=== PATIENT | female | born 1945 | race Caucasian/White ===

== ENCOUNTER 2017-01-02 10:45 | Inpatient (IN) | payer MEDICARE ==
[~2017-01-02] VITALS: Ht 154.9 cm; Wt 137.3 kg
[~2017-01-02 10:45] MED LIST: ALBU17IN INH; ALBU83IN INH; ASPI1TAB PO; ATEN25TA PO; BACITAB PO; CALC600T60 PO; EPIN0.3I6 IM; FISH1000 PO; FURO80TA2 PO; OMEP20CA3 PO; POTA10CA PO; VITA10002 PO; WARF-18 PO; WARF-23 PO
[2017-01-02] MEDS ORDERED: BISACODYL 10 MG SUPP PR PRN (12:15)
[2017-01-02] MEDS ORDERED: NAPROXEN 250 MG TAB PO PRN (12:15)
[2017-01-02 12:35] VITALS: BP 132/63
[2017-01-02] MEDS ORDERED: CALC950T PO (13:35)
[2017-01-02] MEDS ORDERED: REFR0.1D OU (13:35)
[2017-01-02] MEDS ORDERED: COLA100C5 PO (13:35)
[2017-01-02] MEDS ORDERED: ASCO500T PO (13:35)
[2017-01-02] MEDS ORDERED: BISA10SU4 PR (13:35)
[2017-01-02] MEDS ORDERED: TYLE325T5 PO (13:35)
[2017-01-02] MEDS ORDERED: NAPR500T3 PO (13:43)
[2017-01-02] MEDS ORDERED: GABA-279 PO (13:43)
[2017-01-02] MEDS ORDERED: MILKSUS5 PO (13:43)
[2017-01-02] MEDS ORDERED: LIDO1PAD TOP (13:43)
[2017-01-02] MEDS ORDERED: VITA100066 PO (13:49)
[2017-01-02] MEDS ORDERED: SENN1TAB10 PO (13:49)
[2017-01-02] MEDS ORDERED: OXYC-517 PO (13:49)
[2017-01-02 14:00] VITALS: BP 119/63
--- NOTE | 2017-01-02 14:39 | CR.PDOC ---
[facility] [place] CONSULTATION REPORT FOR: Dr English REASON FOR CONSULTATION: Medical Management DATE OF VISIT: 01/02/17 ATTENDING: Dr. Jaspreet Salmeron PCP: HPI: 71year oldF who presented to 12/27/16 following a fall from a tree stand (Pt states the tree stand broke) at 10 ft, denies LOC. Pt was treated for pelvic fracture, non displaced L3 vertebral body fracture extending to rt pedicle. displaced Rt L1-4 fracture. Orthopedics at recommended no surgical intervention re pelvic fracture. Neurosurgery recommended no surgical intervention re vertebral body fracture. Pt transferred to the care of JOSEPHINE Paez. Denies any fevers, chills, weakness, fatigue, Headache, Chest Pain, Shortness of breath, cough, palpitations, abdominal pain, N/V/D or changes in bowel or bladder habits. PAST MEDICAL HISTORY: 1. Hepatitis B. 2. Gastroesophageal reflux disease. 3. Anemia. 4. Hypertension. 5. Transient ischemic attack (TIA). 6. Atrial fibrillation. On coumadin. 7. TRIXIE. CPAP. PAST SURGICAL HISTORY: 1. Tonsillectomy. 2. Tubal ligation. 3. Hysterectomy. 4. Cholecystectomy SOCHX: Resides in: [facility] Marital Status: Tobacco use: denies ETOH: denies Illicit Drugs: Denies FAMHX: non contributory ROS: As noted in HPI, otherwise 11pt ROS of systems reviewed and unremarkable. PE: GEN: 71yoF, appears stated age. Well-nourished, well developed. No acute distress. Alert and oriented x 3. Pleasant, interactive. HEENT: Normocephalic, atraumatic. Pupils are equal, round, and reactive to light. Extraocular movements are intact. No nystagmus appreciated. Sclera are nonicteric. Conjunctiva without injection. Nose midline. Nasal turbinates without bogginess. No facial asymmetry. Moist mucous membranes. Dentition fair. Pharynx pink and moist, no cobblestoning. Neck supple, trachea midline. No lymphadenopathy or thyromegaly appreciated. CHEST: Regular rate and rhythm, +S1, +S2 LUNGS: Clear to auscultation bilaterally. No wheezes, rales, or rhonchi. Breathing appears symmetric and easy. Patient is speaking in full sentences. No accessory muscle use. ABD: Round, soft, non-tender, non-distended. +Bowel sounds throughout. No rebound or guarding. No costovertebral angle tenderness. EXT: No lower extremity edema appreciated. SKIN: [place], dry, warm. No rashes. NEURO: Alert and oriented x 3. Cranial nerves III-XII are intact. No focal deficits appreciated. Adm labs CBC/CMP/UA/INR are pending at this time. A&P: 71year oldF who presented to 12/27/16 following a fall from a tree stand (Pt states the tree stand broke) at 10 ft, denies LOC. Pt was treated for pelvic fracture, non displaced L3 vertebral body fracture extending to rt pedicle. displaced Rt L1-4 fracture. Orthopedics at recommended no surgical intervention re pelvic fracture. Neurosurgery recommended no surgical intervention re vertebral body fracture. 1. Multitrauma/pelvic fracture/vertebral fracture. F/U with Orthopedics and Neurosurgery as per . Mgmt as per [facility]/Dr nEglish. Pain control as per Dr English/[facility] Bowel care as per [facility]/Dr English. DVT prophylaxis. 2. Chronic AFib. atenolol rate control with hold parameters. Continue with Coumadin. PT/INR ordered daily. Labs pending. Monitor. 3. TRIXIE. CPAP with home settings. 4. HTN. Lasix 40 mg po daily/KCL. 5. GERD. Continue PPI. 6. H/O TIA. Continue ASA 81mg daily. Thank you for your consultation. We will continue to follow along with you. Vital Signs/I&O VS pending. Laboratory Data Labs 24H labs pending. Allergies Coded Allergies: Clarithromycin (Verified Allergy, Unknown, 06/10/12) Codeine (Verified Allergy, Unknown, 06/10/12) Fluorescein (Unverified Allergy, Unknown, ANAPHYLACTIC SHOCK, 06/11/15) Morphine (Verified Allergy, Unknown, 06/10/12) Home Medications Scheduled (Lidocaine) 5 % Pad, 3 PATCH TOP DAILY, (Reported) APPLY TO RIGHT HIP Acetaminophen (Tylenol) 325 Mg Tab, 650 MG PO Q6H, (Reported) Ascorbic Acid (Ascorbic Acid) 500 Mg Tab, 500 MG PO DAILY, (Reported) Aspirin (Aspirin 81) 81 Mg Tab, 81 MG PO DAILY, (Reported) Atenolol (Atenolol) 25 Mg Tab, 25 MG PO DAILY, (Reported) Calcium Citrate (Calcium Citrate) 950 Mg Tab, 475 MG PO BID, (Reported) Cholecalciferol (Vitamin D) 1,000 Unit Tab, 2,000 UNIT PO DAILY, (Reported) Docusate Sodium (Colace) 100 Mg Cap, 100 MG PO BID, (Reported) Furosemide (Furosemide) 80 Mg Tab, 80 MG PO DAILY, (Reported) Gabapentin (Gabapentin) 100 Mg Cap, 200 MG PO TID, (Reported) Magnesium Hydroxide (Milk of Magnesia 400 mg/5Ml) 1 Sherry Sherry, 45 ML PO QHS, ( Reported) Naproxen (Naproxen) 500 Mg Tab, 500 MG PO BID, (Reported) Omeprazole (Omeprazole) 20 Mg Cap, 20 MG PO DAILY, (Reported) HAD PROTONIX 40MG @ [facility] Potassium Chloride (Klor-Con M10) 10 Meq Tabcr, 10 MEQ PO BID, (Reported) Senna (Senna Lax) 8.6 Mg Tab, 2 TAB PO QHS, (Reported) Warfarin Sod (Warfarin Sodium) 5 Mg Tab, 5 MG PO 3XW, (Reported) MON, THU, FRI Warfarin Sod (Warfarin Sodium) 2.5 Mg Tab, 2.5 MG PO 4XWK, (Reported) SUN, TUES, THURS, SAT Scheduled PRN Bisacodyl (Bisacodyl) 10 Mg Sup, 10 MG VT Q3DP PRN for CONSTIPATION, (Reported) Carboxymethylcellulose Sodium (Refresh Plus) 0.5 % [place], 1 DROP OU BID PRN for DRY EYES, (Reported) Oxycodone HCl (Oxycodone HCl) 5 Mg Tab, 5 MG PO Q4H PRN for PAIN, (Reported) Oxycodone HCl (Oxycodone HCl) 5 Mg Tab, 10 MG PO Q4H PRN for PAIN, (Reported) Ellie Jacobsen Jan 02, 2017 14:39
[2017-01-02] MEDS: WARFARIN SOD 5 MG TAB PO SCH (16:08)
[2017-01-02] MEDS: GABAPENTIN 100 MG CAP PO SCH ×2 (16:08→21:39)
[2017-01-02] MEDS ORDERED: WARFARIN SOD 5 MG TAB PO SCH (17:00)
[2017-01-02] MEDS: oxyCODONE 5MG TAB PO PRN (18:49)
[2017-01-02 21:30] VITALS: BP 134/66
[2017-01-02] MEDS: CALCIUM/VITAMIN D 500 MG TAB PO SCH (21:38)
[2017-01-02] MEDS: SENNA 8.6 MG TAB (SENOKOT) PO SCH (21:39)
[2017-01-02] MEDS: DOCUSATE SODIUM 100 MG CAP PO SCH (21:39)
[2017-01-02] MEDS: ACETAMINOPHEN TAB 650MG DOSE (2X325MG) PO PRN (21:39)
[2017-01-03] MEDS: oxyCODONE 5MG TAB PO PRN ×4 (03:07→21:01)
[2017-01-03] MEDS: GABAPENTIN 100 MG CAP PO SCH ×3 (06:41→20:59)
[2017-01-03 06:42] VITALS: BP 135/66
[2017-01-03 06:46] LABS: BASO % 0.3 % (0.0-1.0); EOS # 0.5 10^3/uL (0.0-0.50); EOS % 5.7 % (0.0-3.0); IMMATURE GRANULOCYTE % 1.8 % (0-0); LYMPH # 1.7 10^3/uL (1.5-4.5); LYMPH % 21.5 % (24.0-44.0); MEAN CORPUSCULAR HEMOGLOBIN 31.8 pg (27.0-33.0); MEAN CORPUSCULAR HGB CONC 33.3 g/dl (32.0-36.5); MEAN CORPUSCULAR VOLUME 95.4 fl (80.0-96.0); MONO # 0.7 10^3/uL (0.0-0.8); MONO % 9.2 % (0.0-5.0); NEUTROPHILS # 4.9 10^3/uL (1.8-7.7); NEUTROPHILS % 61.5 % (36.0-66.0); PLATELET COUNT, AUTOMATED 208 10^3/uL (150-450); RED CELL DISTRIBUTION WIDTH 14.3 % (11.5-14.5); WHITE BLOOD COUNT 7.9 10^3/uL (4.0-10.0)
[2017-01-03 06:59] LABS: INR 2.51
[2017-01-03 07:07] LABS: ALBUMIN 2.3 GM/DL (3.2-5.2); ALBUMIN/GLOBULIN RATIO 0.61 (1.00-1.93); ALKALINE PHOSPHATASE 84 U/L (45-117); ALT/SGPT 22 U/L (12-78); ANION GAP 6 MEQ/L (8-16); AST/SGOT 15 U/L (7-37); BILIRUBIN,TOTAL 1.4 MG/DL (0.2-1.0); BLOOD UREA NITROGEN 29 MG/DL (7-18); CALCIUM LEVEL 8.6 MG/DL (8.8-10.2); CARBON DIOXIDE LEVEL 30 MEQ/L (21-32); CHLORIDE LEVEL 102 MEQ/L (98-107); CREATININE FOR GFR 0.87 MG/DL (0.55-1.02); GLOMERULAR FILTRATION RATE > 60.0 (>39); GLUCOSE, FASTING 99 MG/DL (83-110); POTASSIUM SERUM 4.8 MEQ/L (3.5-5.1); SODIUM LEVEL 138 MEQ/L (136-145); TOTAL PROTEIN 6.1 GM/DL (6.4-8.2)
[2017-01-03] MEDS: POTASSIUM CHLORIDE 10 MEQ SR TABLET PO SCH (08:51)
[2017-01-03] MEDS: OMEPRAZOLE 20 MG CAP PO SCH (08:51)
[2017-01-03] MEDS: FUROSEMIDE 40 MG TAB PO SCH (08:51)
[2017-01-03] MEDS: ASCORBIC ACID 500 MG TAB PO SCH (08:51)
[2017-01-03] MEDS: ASPIRIN 81 MG ENTERIC TAB PO SCH (08:52)
[2017-01-03] MEDS: ATENOLOL 25 MG TAB PO SCH (08:52)
[2017-01-03] MEDS: CALCIUM/VITAMIN D 500 MG TAB PO SCH ×2 (08:52→20:59)
[2017-01-03] MEDS: DOCUSATE SODIUM 100 MG CAP PO SCH ×2 (08:53→20:59)
[2017-01-03] MEDS: ACETAMINOPHEN TAB 650MG DOSE (2X325MG) PO PRN (11:57)
[2017-01-03 14:00] VITALS: BP 113/68
[2017-01-03] MEDS: WARFARIN SOD 2.5 MG TAB PO SCH (17:22)
[2017-01-03 20:00] VITALS: BP 152/84
[2017-01-03] MEDS: SENNA 8.6 MG TAB (SENOKOT) PO SCH (21:00)
[2017-01-04 06:00] VITALS: BP 154/74
[2017-01-04] MEDS: GABAPENTIN 100 MG CAP PO SCH ×3 (06:25→22:51)
[2017-01-04 07:07] LABS: MEAN CORPUSCULAR HEMOGLOBIN 31.1 pg (27.0-33.0); MEAN CORPUSCULAR HGB CONC 32.5 g/dl (32.0-36.5); MEAN CORPUSCULAR VOLUME 95.5 fl (80.0-96.0); PLATELET COUNT, AUTOMATED 247 10^3/uL (150-450); RED CELL DISTRIBUTION WIDTH 14.9 % (11.5-14.5); WHITE BLOOD COUNT 6.9 10^3/uL (4.0-10.0)
[2017-01-04 07:18] LABS: INR 2.48
[2017-01-04] MEDS: ASCORBIC ACID 500 MG TAB PO SCH (08:21)
[2017-01-04] MEDS: DOCUSATE SODIUM 100 MG CAP PO SCH ×2 (08:21→20:26)
[2017-01-04] MEDS: OMEPRAZOLE 20 MG CAP PO SCH (08:21)
[2017-01-04] MEDS: CALCIUM/VITAMIN D 500 MG TAB PO SCH ×2 (08:21→20:27)
[2017-01-04] MEDS: POTASSIUM CHLORIDE 10 MEQ SR TABLET PO SCH (08:21)
[2017-01-04] MEDS: FUROSEMIDE 40 MG TAB PO SCH (08:21)
[2017-01-04] MEDS: ASPIRIN 81 MG ENTERIC TAB PO SCH (08:21)
[2017-01-04] MEDS: oxyCODONE 5MG TAB PO PRN ×3 (08:22→20:28)
[2017-01-04] MEDS: ATENOLOL 25 MG TAB PO SCH (08:22)
[2017-01-04 14:00] VITALS: BP 132/74
[2017-01-04] MEDS: WARFARIN SOD 2.5 MG TAB PO SCH (18:26)
[2017-01-04 20:23] VITALS: BP 122/70
[2017-01-04] MEDS: SENNA 8.6 MG TAB (SENOKOT) PO SCH (20:27)
[2017-01-04] MEDS: ACETAMINOPHEN TAB 650MG DOSE (2X325MG) PO PRN (22:52)
[2017-01-05] MEDS: GABAPENTIN 100 MG CAP PO SCH ×3 (06:52→21:00)
[2017-01-05] MEDS: ACETAMINOPHEN TAB 650MG DOSE (2X325MG) PO PRN (06:52)
[2017-01-05 06:55] VITALS: BP 118/58
[2017-01-05 07:40] LABS: INR 2.6
[2017-01-05] MEDS: FUROSEMIDE 40 MG TAB PO SCH (08:27)
[2017-01-05] MEDS: OMEPRAZOLE 20 MG CAP PO SCH (08:27)
[2017-01-05] MEDS: POTASSIUM CHLORIDE 10 MEQ SR TABLET PO SCH (08:27)
[2017-01-05] MEDS: CALCIUM/VITAMIN D 500 MG TAB PO SCH ×2 (08:27→08:29)
[2017-01-05] MEDS: DOCUSATE SODIUM 100 MG CAP PO SCH ×2 (08:27→20:58)
[2017-01-05] MEDS: MOM 30ML SUSPENSION UDC PO PRN (08:27)
[2017-01-05] MEDS: ATENOLOL 25 MG TAB PO SCH (08:28)
[2017-01-05] MEDS: ASPIRIN 81 MG ENTERIC TAB PO SCH (08:28)
[2017-01-05] MEDS: oxyCODONE 5MG TAB PO PRN ×3 (08:28→16:04)
[2017-01-05] MEDS: ASCORBIC ACID 500 MG TAB PO SCH (08:28)
--- NOTE | 2017-01-05 10:58 | PMRHPE ---
DATE OF ADMISSION: 01/02/2017 REASON FOR ADMISSION: Rehabilitation of multiple trauma including L3 vertebral compression fracture, L1, 2, 3 and 4 transverse process fractures. Right pubic ramus superior and inferior fractures with thigh wounds from punctures secondary to fall caused from the tree stand brace collapsing and fall onto the right buttock, hip with secondary fractures, contusions and ecchymoses internally and externally due to the fractures and ground to skin contact as well, occurring on 2016. HISTORY OF THE PRESENT ILLNESS: Patient is a right-handed 71-year-old white female who was preparing to use the tree stand for deer hunting and was getting out of the stand when she felt part of it give way and she fell from this 10 foot high stand onto part of the bracing that gave way causing several puncture wounds in her right buttocks as well as the above described fractures. 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 Patient is on weightbearing as tolerated, however, is to use thoracolumbosacral orthosis (TLSO) brace whenever out of bed, though she can have off in bed and she can sit up while not flexing the back or rotating it to more easily done with device. Patient has started therapy at [facility] with physical and occupational therapy and was making fairly good progress and felt to be appropriate more intensive acute rehabilitation. She lives in [place]. She was transferred here for acute intensive rehabilitation at [facility] acute rehabilitation unit ([facility]). Patient is on deep venous thrombosis (DVT) prophylaxis with Coumadin. PAST MEDICAL HISTORY: Includes history of hepatitis B, gastroesophageal reflux disease (GERD), anemia, hypertension, transient ischemic attack (TIA), atrial fibrillation, and severe reaction and anaphylaxis during an eye examination to either the fluorescein stain or dilating agent in June of 2015. PAST SURGICAL HISTORY: Includes tonsillectomy, tubal ligation, hysterectomy, and cholecystectomy. FAMILY HISTORY: Is noncontributory. SOCIAL HISTORY: The patient lives with her in [place], has extensive supportive family. She has been very active prior to this, generally going hunting, which she was preparing to do when part of the tree stand collapsed on her. She does not smoke, use tobacco products or drink alcohol or use illicit drugs. She is ALLERGIC to MORPHINE, CODEINE, CLARITHROMYCIN, and FLUORESCEIN DYE, though consideration on dilators for the eye may have been the source of the reaction in the past. MEDICATIONS ON ADMISSION: - Tylenol 650 mg, was every 6 hours, now as needed every 6 hours - ascorbic acid 500 mg daily - aspirin 81 mg daily - atenolol 25 mg daily - Dulcolax suppository 10 mg per rectum as needed, constipation - Os-Walt D 100 mg by mouth twice a day - Colace 100 mg twice a day - Lasix 40 mg every day - gabapentin 200 mg every 8 hours - Milk of Magnesia 30 mL by mouth as needed, constipation on a daily basis as needed - naproxen 500 mg by mouth twice a day for arthritis pain - omeprazole 20 mg daily for GERD protection - oxycodone 5 mg every 4 hours for moderate pain, 10 mg every 4 hours for severe pain on an as needed basis for both of them - potassium chloride 10 mEq daily - Senokot two tablets nightly - Coumadin 5 mg every Thursday, Thursday, Thursday, 2.5 mg every Thursday, Thursday, , Thursday (Patient's INR therapeutic at 2.35 today, target range 2.0 to 3.0 on the INR.) REVIEW OF SYSTEMS: Negative except for those things noted above. PHYSICAL EXAMINATION: General: Patient is a pleasant, elderly white female who is alert and well oriented. She is short, approximately 5 foot 1 inch tall and morbidly obese weighing 96 kg, but is pleasant and cooperative and a good historian. Vital signs: Temperature 97.5, pulse 97, respirations 16, blood pressure 112/ 72. Pain level is 5/10 and patient is at 96% oxygen saturation on room air. HEENT is normocephalic, atraumatic with some graying of hair. Pupils are equal, round, reactive to light and accommodation. Extraocular motions are intact. Nares are patent. Nasal septum straight. Hearing is good. Oropharynx without significant lesions. Tongue is midline and patient able to evenly elevate palate. Neck is supple. No tenderness or increased lymph node. Thyroid is midline, normal texture and size, mobile. No nodules felt. Lungs are clear in all howe to auscultation. Coronary shows regular rate and rhythm with normal S1, S2, without S3, S4, murmurs or rubs, and patient with 2/4 bilateral radial pulses. She does have her TLSO on. When she lays down in bed it tends to slide up towards the throat and onto the abdomen as far as the anterior portions go. Patient appears in general though, to be in mild distress. Abdomen is obese. Bowel sounds are present in all quadrants. The abdomen is nontender. Upper and lower extremity with functional range of motion. Neurologically, patient is alert and oriented times four. Speech is clear, coherent and appropriate. Affect is pleasant and cooperative. Patient a good historian and seems to have intact memory. She does note a moment of not really remembering what happened when she hit the ground, though she fully remembers going to the ground and she rapidly remembers after being on the ground having the pain and what had happened. She does not have the general fuzziness of having had a concussion at that time and has not had noted cognitive neurologic symptoms during her admission at [facility]. Sensorium is intact to light touch and vibration in bilateral upper and lower extremity with normal tone and 2/4 knee jerks and 1/4 biceps, triceps, brachioradialis. ASSESSMENT/PLAN: Diagnoses: 1. Rehabilitation on multiple trauma including pelvic, right ramus inferior and superior element fractures with a stable ring, L3 fracture, reported crack into the sacrum but is stable, compression fracture of L3 and L1, 2, 3 and 4 transverse process fractures, and patient with high-grade stenosis of L5-S1 and anterolisthesis of L4-5, though no apparent radicular findings. Patient apparently limited on her ability to cone picker her leg and ambulate for significant distances precluding her being safely at home. She is not able to fully perform activities of daily living (ADL) to function at home while safely using the TLSO and needs further training on this. I do feel patient is extremely motivated and likely to benefit from participating in 3 hours of therapy a day with physical and occupational therapy and should be able to overcome her deficits to allow safe return to home within a week. 2. Puncture wounds right buttocks. We will go ahead and continue with dry sterile dressings to these and observe them. 3. History of atrial fibrillation. We will be observing for that and patient will be continued on her Coumadin with target range of 2.0 to 3.0 on INRs. This will also provide deep venous thrombosis (DVT) prophylaxis along with using thromboembolic deterrent (FIONA) hose. 4. Gastroesophageal reflux disease. Patient will continue with omeprazole. 5. Pain. Patient will continued with gabapentin 200 mg every 8 hours, along with naproxen sodium and also oxycodone 5-10 mg for moderate to severe pain every 4 hours as needed. POSTADMISSION PHYSICIAN EVALUATION: Patient is consistent with prior evaluation and preadmission screening. She is highly motivated. She does have to work around her morbid obesity as well as maintaining proper positioning to avoid further damage to the L3 compression fracture and to allow best chance for the transverse processes healing. So she will need to learn how to ADLs mobility with the TLSO on and be able to don and doff it appropriately. She needs to be able to do four stairs to get into the house and to maximally return to her own home, 13 stairs at home, though she may be able to work out with her children who have full bathrooms on the first floor and a walk-in walk, which has a walk-in shower, doing some of the caring hygiene there. I feel patient is able to participate in a benefit from 3 hours of physical and occupational therapy per day with a good prognosis for return to home with her . Her estimated length of stay is 7 days. Time spent on chart review, history and physical, and documentation 70 minutes. DEBORAH
--- NOTE | 2017-01-05 12:10 | IPNPDOC ---
PM&R Progress Note Assisted Living Director Progress Note DATE OF SERVICE: 01/05/17 DATE OF ADMISSION: Jan 02, 2017 at 12:35 INPATIENT REHABILITATION ADMISSION DAY: #4 SUBJECTIVE: Patient is a right-handed 71-year-old white female who was preparing to use the tree stand for deer hunting and was getting out of the stand when she felt part of it give way and she fell from this 10 foot high stand onto part of the bracing that gave way causing several puncture wounds in her right buttocks as well as the above described fractures. 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 Patient is on weightbearing as tolerated, however, is to use thoracolumbosacral orthosis (TLSO) brace whenever out of bed. She reports doing well this weekend except for the anemia and transfusion. Currently, pain well controlled and no other complaints. ALLERGIES: See Below MEDICATIONS: Reviewed, see below. OBJECTIVE: VITAL SIGNS: Please see below. PHYSICAL EXAMINATION: GENERAL: Obese, elderly, white female, who is alert and well oriented. She is in very mild musculoskeletal distress wearing a TLSO and sitting up on the edge of the bed with good balance. HEENT: Normal cephalic/atraumatic. CARDIOVASCULAR: Regular rate and rhythm with normal S1 and S2. 2/4 bilateral radial pulses. LUNGS: All howe clear to auscultation. ABDOMEN: Obese/benign with normal bowel sounds in all quadrants. NEUROLOGICAL: Alert and oriented 4. Speech is clear coherent and appropriate. Affect is pleasant and cooperative. Memory is intact. Patient with some guarding around hips and low back and shoulders in movements. However strength is 4-5 out of 5 in bilateral upper and lower extremities. SKIN: Right thigh puncture wounds dressed. LABORATORY DATA: Reviewed. Please see below. MICROBIOLOGY: Please see below. IMAGING: No new images. DVT prophylaxis ordered?: On Coumadin schedule with today's INR 2.60 and target range 2.0-3.0 on INR. FIONA neal. ASSESSMENT AND PLAN: 1. Rehabilitation multiple trauma including L3 compression fracture, L1-4 transverse process fractures, right superior and inferior rami fractures of the pelvis, right pelvic hematoma secondary to fracture and right buttocks puncture wounds: Patient was unable to do full therapies on Thursday due to severe anemia for which she has been transfused. Patient has since been able to participate in 3 hours of therapy per day of physical and occupational therapy. Patient showing improved balance and motor control. Anticipated date of discharge 2. Anemia: Patient received one unit of packed red blood cells on Thursday and yesterday's H&H is 8.2 and 25.2% which remains moderate to severe. Her heart rate and blood pressures have been stable and she is been able participate in therapy since receiving the transfusion. I will go ahead and order CBCs to monitor the anemia and need for another transfusion. 3. Hypoalbuminemia: Patient has been stressed by patient multiple fractures and other injuries and albumin is down to 2.3. We will continue to monitor this and try and work on nutrition. 4. elevated BUN: Patient appears to be mildly dehydrated with a BUN of 29 and creatinine of 0.87. We will continue to monitor this along with need for nutritional support. 5. Total bilirubin: This is mildly elevated at 1.4 and we will continue to monitor this. The remainder of the liver function tests were normal. REHAB. TEAM ROUNDS: Patient is doing excellent in PT and OT at this time with her progress in mobility and ADL's though she is having problems with pain with activity, due to sometimes over doing it. This afternoon in PT, she developed right posterior hip muscular spasms, which had some relief with manual medicine techniques from stretching to mobilization and muscle energy techniques. I will order some Baclofen 5 mg bid and we will continue to use Icing. Please see therapy notes below. Anticipated Discharge Date is 01/08/17. TIME SPENT: Chart Review, examination and documentation require greater than 25 minutes. Patient: Judy Cortez : 1945 Age/Sex: 71/F Unit#: [id number] Room/Bed: M4148/01 User: Nathaly Best [facility] Date: 01/05/17 13:35 Type: OT Progress Time In * 13:07 Time Out * 13:30 OT Treatment Time-Minutes * 23 mins Type of Therapy Provided * Individual Precautions * Fall * Back Other Precautions * brace when OOB Unit * Acute Inpatient Rehab Pain Comment * Pt c/o pain in back, 06/16. Subjective * Pt seated in w/c with granddaughter present. Agreeable to therapy Cognition * Within Normal Limits Bed Mobility Notes * OOB t/o session Dressing-Upper Body * Moderate Assist Dressing-Lower Body * Minimum Assist ADL Training Note * Pt able to doff back brace with no hands on assist. Mod A to don brace. Pt able to bring brace over head to place behind her. Pt requires A to adjust brace for correct fit. Sit-Static * G Sit-Dynamic * G Balance Training Note * Assessed seated in w/c. OT Intervention Note * Pt also completed CRYSTAL UB ther ex to include shoulder flexion, shoulder abduction, shoulder horizontal ab/adduction and bicep curls. All completed with 2# weight x 10 reps to increase UB strength needed to complete ADL's at maximum level of (I). Pt would benefit from continued practice with donning back brace. Pt left seated in w/c with call light in reach. OT Goal Note * Continue with OT plan of care. Discharge Recommendations * Home w/services Safe for discharge at this time * No Patient: RickJudy orr Nemesio : 1945 Age/Sex: 71/F Unit#: [id number] Room/Bed: M4148/01 User: Beata Stafford OT OT Date: 01/05/17 14:14 Type: OT Progress Time In * 09:20 Time Out * 10:35 OT Treatment Time-Minutes * 75 mins Type of Therapy Provided * Individual Precautions * Fall * Back * Other Other Precautions * TLSO on at all times. Unit * Acute Inpatient Rehab Pain Comment * Pt c/o pain in L hip, did not rate numerically. Subjective * Pt sitting in w/c upon OT arrival, requesting visit to bathroom. Cognition * Within Normal Limits Cognition Comments * A&Ox3 Sit to Supine * Moderate Assist Bed Mobility Notes * Mod assist at completion of tx to transfer sit EOB to supine. Pt requires VCs for log rolling technique, as well as assist for BLE into bed. Sit to Stand * Contact Guard Assist Stand to Sit * Contact Guard Assist Bed to Chair * Contact Guard Assist Toilet/Commode * Contact Guard Assist Functional Transfer Notes: * All functional sit<>stand transfers with CGA for safety using RW. Pt ambulated ~15' to bathroom with RW and completed toilet transfer with CGA only. Bathing * Minimum Assist Dressing-Upper Body * Standby Assist Dressing-Lower Body * Standby Assist Grooming * Independent Toileting * Moderate Assist Eating * Independent ADL Training Note * Pt completed clothing management with CGA, though unable to complete hygiene following BM. Pt reports she has a toilet aide from previous injury, at home, and states her daughter will bring it up as soon as shes able. Pt then returned to chair and completed grooming independently while seated at sink. Pt completed bathing from w/c level, pt able to wash chest, BUE, jcarlos, BLE using long handled sponge. Pt unable to reach to wash buttocks or abdomen due to TLSO donned in sitting. LB dressing-pt able to thread BLE into pants and stand to pull up with supervision only. Pt then returned to supine and completed UB dressing with set-up assist only while supine. Pt does require total assist to doff/don TLSO. A. Eating (include only those with PO intake): * 06.Independent Eating Comments: * See ADL note. B. Oral Hygiene (includes gums in edentulous pts): * 06.Independent Oral Hygiene Comments: * See ADL note. C. Toileting Hygiene (not transfers): * 03.Partial/Mod Assist Toileting Hygiene Comments: * See ADL note E. Shower/Bathe Self (not transfers, can be sponge bath): * 04.Sup/Touch Assist Shower/Bathe Self Comments: * See ADL note F. Upper Body Dressing (includes bra, not hospital gown): * 06.Independent Upper Body Dressing Comments: * See ADL note. G. Lower Body Dressing (includes briefs and knee braces): * 06.Independent Lower Body Dressing Comments: * See ADL note. H. Putting on/taking off footwear (includes TEDS and AFO): * 06.Independent Putting on/taking off footwear Comments: * See ADL note. Sit-Static * G Sit-Dynamic * G Stand-Static * G- Stand-Dynamic * F+ Balance Training Note * Assessed seated in w/c, standing using RW OT Intervention Note * See ADL note above. Following ADLs, pt remained supine in bed, awaiting PT. TLSO adjusted for comfort/stability once donned with PT. All needs met, call light in reach. OT Goal Note * Continue with OT plan of care. Discharge Recommendations * Home w/services Safe for discharge at this time * No Patient: Judy Cortez : 1945 Age/Sex: 71/F Unit#: [id number] Room/Bed: [place] [address] User: Saundra Kurtz PT PT Date: 01/05/17 12:15 Type: PT Progress Note Time In * 10:36 Time Out * 11:39 PT Treatment Time-Minutes * 63 mins Type of Therapy Provided * Individual Precautions * Fall * Back Other Precautions * TLSO donned for all OOB activity Per MD able to don EOB Unit * Acute Inpatient Rehab Pain Start of Session * 4 Pain End of Session * 8 Pain Comment * Pt reported R hip/groin pain and received pain medication post therapy. JERRI Villalba notified. Subjective * Pt was in good spirits and willing to participate in all that was asked of her at this time. She is motivated to complete all asked of her. Cognition * Within Normal Limits Cognition Comments * alert and oriented x 3, no significant cognitive deficits noted Supine to Sit * Standby Assist Sit to Supine * Not Tested Rolling * Not Tested Bed Mobility Notes * Pt able to roll to L and R sides with SBA for donning/doffing TLSO. Pt able to perf supine>sit with bed rail and HOB slightly elevated with very close SBA for safety. Sit to Stand * Contact Guard Assist Stand to Sit * Contact Guard Assist Bed to Chair * Contact Guard Assist Chair to Bed * Not Tested Toilet/Commode * Contact Guard Assist Transfer Training Notes * CGA/SBA for sit to stand transfers for safety only today Sit-Static * G- Sit-Dynamic * G- Stand-Static * G- Stand-Dynamic * F+ Balance Training Note * Sitting balance assessed sitting at edge of bed, standing balance assessed standing at RW. Ambulation Distance * 40 Feet Ambulation Level of Assist * Contact Guard Assist Assistive Device Used * Rolling Walker * Gait Belt Other Assistive Device Used * TLSO donned Gait Training Note * pt ambulating 40 ft as well as 15' and 25' during session. Pt tolerating ok however does note that it increased hip and groin pain. No LOB or unsteadiness noted. Wheelchair Distance * 170 feet Wheelchair Mobility Level of Assist * Modified Independent Wheelchair Mobility Comment * pt able to use both arms and legs to propell w/c today. is appropriate with breaks t/o session. Number of Stairs Completed * 2 Stairs Railing * Yes Railing Side * Right & Left Level of Assist for Stairs * Minimum Assist Able to Maintain Weight Bearing Status on Stairs * Yes Stair Training Note * pt notes pain in hip while ascending stepps. able to ascend 2-4" steps forward. Pt then able to descend steps backward with no increased pain noted at this time. A. Roll Left and Right: * 05.Setup/clean up Asst B. Sit to Lying: * 88.Not Attempted Sit to Lying Comments: * see transfer notes C. Lying to Sitting on Side of Bed: * 05.Setup/clean up Asst D. Sit to Stand: * 04.Sup/Touch Assist E. Chair/Ggu-oz-Ukdti Transfer: * 04.Sup/Touch Assist F. Toilet Transfer: * 04.Sup/Touch Assist G. Car Transfer: * 88.Not Attempted Car Transfer Comments: * pt notes being worried about being able to get into and out of the car. Will need to practice prior to d/c with personal vehicle. H. Does the patient walk?: * 2. Yes I. Walk 10 Feet: * 04.Sup/Touch Assist Walk 10 Feet Comments: * See gait notes. J. Walk 50' with Two Turns: * 88.Not Attempted Walk 50' with Two Turns Comments: * Not attempted secondary to increased pain with ambulation K. Walk 150 Feet: * 88.Not Attempted L. Walking 10' on uneven surfaces: * 88.Not Attempted M. 1 Step (curb): * 03.Partial/Mod Assist N. 4 Steps (with or without railing): * 88.Not Attempted O. 12 Steps (with or without railing): * 88.Not Attempted 12 Steps (with or without railing) Comments: * pt states she is not anticipating going up stairs right aware upon return home depending on difficulty with stairs. She states she is able to set up a 1st floor living situation as needed. P. Picking up Object from the Floor (from a standing): * 88.Not Attempted Q. Does the patient use a w/c (other than just transport): * 0. No R. Wheel 50' with 2 Turns(seated in w/c): * 06.Independent RR. What type of w/c?: * 1. Manual S. Wheel 150' (seated in w/c): * 06.Independent SS. What type of w/c?: * 1. Manual Lower Extremity Exercised * Bilateral Sitting Exercises * Long Arc Quads * Marching * Toe Raises * Heel Raises Number of Reps Sitting * 15-20 Reps Standing Exercises * Marching * Heel Raises Number of Reps Standing * 10-15 Reps Therapeutic Exercises Note * Patient was instructed to keep ther ex in a pain free range. does con't to however notes some discomfort in hip area with marching. PT Interventions * Gait Training * Therapeutic Excercise * Functional Training * Bed Mobility * Balance Activities * Safety/Precautions * HEP * Pt./Family Education * D/C Needs * Neuro Re-Education PT Progress Note * Patient demonstrates increased ease with ambulation this session. Patient is very motivated and is willing to push herself, however educated that we do not want pain to increase so much that she is unable to participate. Pt verbalizes understanding. Patient demonstrates all activity with no immediate adverse effects. Patient was seated in wheelchair with call mo and personal belongings within reach following PT session. Nursing is notified. PT Goal Note * increase ambulation and functional mobility Discharge Recommendations * Home w/services Safe for discharge at this time * No Comment * pt unable to ascend stairs into her home at this time. Allergies Coded Allergies: Clarithromycin (Verified Allergy, Unknown, 06/10/12) Codeine (Verified Allergy, Unknown, 06/10/12) Fluorescein (Unverified Allergy, Unknown, ANAPHYLACTIC SHOCK, 06/11/15) Morphine (Verified Allergy, Unknown, 06/10/12) Vital Signs Vital Signs Date Time Temp Pulse Resp B/P (MAP) Pulse Ox O2 Delivery O2 Flow Rate FiO2 01/05/17 08:58 18 01/05/17 08:28 93 118/58 01/05/17 06:55 98.6 96 Room Air Laboratory Data Labs 24H Laboratory Tests 2 01/05/17 07:09: Prothrombin Time 28.9H, Prothromb Time International Ratio 2.60 Current Medications Current Medications Current Medications Acetaminophen (Tylenol Tab) 650 mg Q6HP PRN PO PAIN OR FEVER Last administered on 01/05/17 06:52; Start 01/02/17 at 12:15; Stop 02/01/17 at 12:14 Ascorbic Acid (Vitamin C) 500 mg DAILY PO Last administered on 01/05/17 08:28 ; Start 01/03/17 at 09:00; Stop 02/02/17 at 08:59 Aspirin (Ecotrin) 81 mg DAILY PO Last administered on 01/05/17 08:28; Start 01/03/17 at 09:00; Stop 02/02/17 at 08:59 Atenolol (Tenormin) 25 mg DAILY PO Last administered on 01/05/17 08:28; Start 01/03/17 at 09:00; Stop 02/02/17 at 08:59 Bisacodyl (Dulcolax Suppository) 10 mg DAILYPRN PRN NC CONSTIPATION; Start at 12:15; Stop 02/01/17 at 12:14 Calcium/Vitamin D (Oscal D) 1,000 mg BID PO Last administered on 01/05/17 08: 29; Start 01/02/17 at 21:00; Stop 02/01/17 at 20:59 Docusate Sodium (Colace) 100 mg BID PO Last administered on 01/05/17 08:27; Start 01/02/17 at 21:00; Stop 02/01/17 at 20:59 Furosemide (Lasix) 40 mg DAILY PO Last administered on 01/05/17 08:27; Start 01/03/17 at 09:00; Stop 02/02/17 at 08:59 Gabapentin (Neurontin) 200 mg Q8H PO Last administered on 01/05/17 06:52; Start 01/02/17 at 14:00; Stop 02/01/17 at 13:59 Home Med (Med Rec Complete!) ASDIRECTED XX ; Start 01/02/17 at 14:00; Stop at 14:00; Status DC Magnesium Hydroxide (Milk Of Magnesia) 30 ml DAILYPRN PRN PO CONSTIPATION Last administered on 01/05/17 08:27; Start 01/02/17 at 12:15; Stop 02/01/17 at 12 :14 Naproxen (Naprosyn) 500 mg BIDP PRN PO PAIN; Start 01/02/17 at 12:15; Stop at 12:14 Omeprazole (PriLOSEC) 20 mg DAILY PO Last administered on 01/05/17 08:27; Start 01/03/17 at 09:00; Stop 02/02/17 at 08:59 Oxycodone HCl (Roxicodone, Oxyir) 5 mg Q4HP PRN PO PAIN SCALE 5-7 Last administered on 01/05/17 08:28; Start 01/02/17 at 12:15; Stop 01/09/17 at 12: 14 Oxycodone HCl (Roxicodone, Oxyir) 10 mg Q4HP PRN PO SEVERE PAIN (PS 8-10) Last administered on 01/04/17 12:29; Start 01/02/17 at 12:15; Stop 01/09/17 at 12: 14 Potassium Chloride (Micro-K Extencaps) 10 meq DAILY PO Last administered on 08:27; Start 01/03/17 at 09:00; Stop 02/02/17 at 08:59 Senna (Senokot) 2 tab QHS PO Last administered on 01/04/17 20:27; Start at 21:00; Stop 02/01/17 at 20:59 Warfarin Sodium (Coumadin) 2.5 mg 1T@17 PO ; Start 01/02/17 at 17:00; Stop at 17:00; Status DC Warfarin Sodium (Coumadin) 2.5 mg SuTuThSa@1700 PO Last administered on 18:26; Start 01/03/17 at 17:00; Stop 01/10/17 at 16:59 Warfarin Sodium (Coumadin) 5 mg MoWeFr@1700 PO Last administered on 01/02/17t 16:08; Start 01/02/17 at 17:00; Stop 01/09/17 at 16:59 JUAN MULLINS MD Jan 05, 2017 12:10
[2017-01-05 14:00] VITALS: BP 130/67
[2017-01-05] MEDS ORDERED: BACLOFEN 10 MG TAB PO ONE (16:00)
[2017-01-05] MEDS: WARFARIN SOD 5 MG TAB PO SCH (16:03)
[2017-01-05] MEDS ORDERED: BACLOFEN 5MG PER 1/2 TABLET PO ONE (16:15)
[2017-01-05] MEDS: SENNA 8.6 MG TAB (SENOKOT) PO SCH (20:58)
[2017-01-05] MEDS: BACLOFEN 5MG PER 1/2 TABLET PO SCH (20:58)
[2017-01-05] MEDS: traMADol ER 100MG TABLET (ULTRAM ER) PO SCH (20:58)
[2017-01-06] MEDS: oxyCODONE 5MG TAB PO PRN ×3 (02:54→14:04)
[2017-01-06 06:00] VITALS: BP 111/55
[2017-01-06] MEDS: GABAPENTIN 100 MG CAP PO SCH ×3 (06:00→21:27)
[2017-01-06 07:02] LABS: MEAN CORPUSCULAR HGB CONC 32.4 g/dl (32.0-36.5); MEAN CORPUSCULAR VOLUME 95.6 fl (80.0-96.0); PLATELET COUNT, AUTOMATED 265 10^3/uL (150-450); RED CELL DISTRIBUTION WIDTH 14.6 % (11.5-14.5); WHITE BLOOD COUNT 8.1 10^3/uL (4.0-10.0)
[2017-01-06 07:13] LABS: INR 2.89
[2017-01-06] MEDS: OMEPRAZOLE 20 MG CAP PO SCH (07:57)
[2017-01-06] MEDS: POTASSIUM CHLORIDE 10 MEQ SR TABLET PO SCH (07:57)
[2017-01-06] MEDS: traMADol ER 100MG TABLET (ULTRAM ER) PO SCH ×2 (07:57→21:27)
[2017-01-06] MEDS: CALCIUM/VITAMIN D 500 MG TAB PO SCH ×2 (07:58→21:27)
[2017-01-06] MEDS: ASPIRIN 81 MG ENTERIC TAB PO SCH (07:58)
[2017-01-06] MEDS: ASCORBIC ACID 500 MG TAB PO SCH (07:58)
[2017-01-06] MEDS: BACLOFEN 5MG PER 1/2 TABLET PO SCH ×2 (07:58→21:27)
[2017-01-06] MEDS: ATENOLOL 25 MG TAB PO SCH (07:58)
[2017-01-06] MEDS: FUROSEMIDE 40 MG TAB PO SCH (07:58)
[2017-01-06] MEDS: DOCUSATE SODIUM 100 MG CAP PO SCH ×2 (07:58→21:27)
--- NOTE | 2017-01-06 09:41 | IPNPDOC ---
PM&R Progress Note It Technical Architect Progress Note DATE OF SERVICE: 01/06/17 DATE OF ADMISSION: Jan 02, 2017 at 12:35 INPATIENT REHABILITATION ADMISSION DAY: #5 SUBJECTIVE: Patient is a right-handed 71-year-old white female who was preparing to use the tree stand for deer hunting and was getting out of the stand when she felt part of it give way and she fell from this 10 foot high stand onto part of the bracing that gave way causing several puncture wounds in her right buttocks as well as the above described fractures. 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 Patient is on weightbearing as tolerated, however, is to use thoracolumbosacral orthosis (TLSO) brace whenever out of bed. She reports doing well this weekend except for the anemia and transfusion. Currently, pain in posterior right thigh around punctures and ecchymosis. Cramping improved since 2nd dose of Baclofen 5 mg at 2100 last night. Patient reports Tetanus shot in last 2 years at her PCP' s office. She denies any lightheadedness when up this morning. ALLERGIES: See Below MEDICATIONS: Reviewed, see below. OBJECTIVE: VITAL SIGNS: Please see below. PHYSICAL EXAMINATION: GENERAL: Obese, elderly, white female, who is alert and well oriented. She is in very mild musculoskeletal distress wearing a TLSO and sitting up on the edge of the bed with good balance. HEENT: Normal cephalic/atraumatic. CARDIOVASCULAR: Regular rate and rhythm with normal S1 and S2. 2/4 bilateral radial pulses. LUNGS: All howe clear to auscultation. ABDOMEN: Obese/benign with normal bowel sounds in all quadrants. NEUROLOGICAL: Alert and oriented 4. Speech is clear coherent and appropriate. Affect is pleasant and cooperative. Memory is intact. Patient with some guarding around hips and low back and shoulders in movements. However strength is 4-5 out of 5 in bilateral upper and lower extremities. SKIN: Right thigh puncture wounds without drainage or fluctuance. Area of the ecchymosis with little purple remaining, and mainly spreading yellow. The area is warmer to touch vs the rest of the thigh/hip area as well as mild tenderness. LABORATORY DATA: Reviewed. Please see below. MICROBIOLOGY: Please see below. IMAGING: No new images. DVT prophylaxis ordered?: On Coumadin schedule with today's INR 2.89 and target range 2.0-3.0 on INR. FIONA neal. I will hold tonight's coumadin 2.5 mg as the Protime/INR is climbing and likely to exceed 3.0 before the 5.0 mg from last night has finished it's activity. ASSESSMENT AND PLAN: 1. Rehabilitation multiple trauma including L3 compression fracture, L1-4 transverse process fractures, right superior and inferior rami fractures of the pelvis, right pelvic hematoma secondary to fracture and right buttocks puncture wounds: Patient was unable to do full therapies on Thursday due to severe anemia for which she has been transfused. Patient has since been able to participate in 3 hours of therapy per day of physical and occupational therapy. Patient showing improved balance and motor control. Anticipated date of discharge is 01/08/17 unless the anemia and hip spasms slow her therapy progress. 2. Anemia: Patient received one unit of packed red blood cells on Thursday and yesterday's H&H is 7.8 and 24.1% (down from 8.2 & 25.2% yesterday). Overall her anemia remains moderate to severe. Her heart rate and blood pressures have been stable and she is been able participate in therapy since receiving the transfusion. I will continue to review CBCs and vital signs and therapy tolerance to monitor the anemia and need for another transfusion. 3. Hypoalbuminemia: Patient has been stressed by patient multiple fractures and other injuries and albumin is down to 2.3. We will continue to monitor this and try and work on nutrition. I will recheck CMP tomorrow with prealbumin as well. 4. elevated BUN: Patient appears to be mildly dehydrated with a BUN of 29 and creatinine of 0.87. We will continue to monitor this along with need for nutritional support. I will recheck CMP tomorrow. 5. Total bilirubin: This is mildly elevated at 1.4 and we will continue to monitor this. The remainder of the liver function tests were normal. Repeat CMP tomorrow. TIME SPENT: Chart Review, examination and documentation require greater than 25 minutes. Allergies Coded Allergies: Clarithromycin (Verified Allergy, Unknown, 06/10/12) Codeine (Verified Allergy, Unknown, 06/10/12) Fluorescein (Unverified Allergy, Unknown, ANAPHYLACTIC SHOCK, 06/11/15) Morphine (Verified Allergy, Unknown, 06/10/12) Vital Signs Vital Signs Date Time Temp Pulse Resp B/P (MAP) Pulse Ox O2 Delivery O2 Flow Rate FiO2 01/06/17 07:58 87 123/65 01/06/17 06:00 99.4 18 94 Room Air Laboratory Data CBC/BMP Laboratory Tests 01/06/17 06:19 Red Blood Count 2.52 L, Mean Corpuscular Volume 95.6, Mean Corpuscular Hemoglobin 31.0, Mean Corpuscular Hemoglobin Concent 32.4, Red Cell Distribution Width 14.6 H Labs 24H Laboratory Tests 2 01/06/17 06:19: Nucleated Red Blood Cells % (auto) 0.0, Prothrombin Time 31.5H, Prothromb Time International Ratio 2.89 Current Medications Current Medications Current Medications Acetaminophen (Tylenol Tab) 650 mg Q6HP PRN PO PAIN OR FEVER Last administered on 01/05/17 06:52; Start 01/02/17 at 12:15; Stop 02/01/17 at 12:14 Ascorbic Acid (Vitamin C) 500 mg DAILY PO Last administered on 01/06/17 07:58 ; Start 01/03/17 at 09:00; Stop 02/02/17 at 08:59 Aspirin (Ecotrin) 81 mg DAILY PO Last administered on 01/06/17 07:58; Start 01/03/17 at 09:00; Stop 02/02/17 at 08:59 Atenolol (Tenormin) 25 mg DAILY PO Last administered on 01/06/17 07:58; Start 01/03/17 at 09:00; Stop 02/02/17 at 08:59 Baclofen (Lioresal) 5 mg BID PO Last administered on 01/06/17 07:58; Start 01/05/17 at 21:00; Stop 01/10/17 at 20:59 Bisacodyl (Dulcolax Suppository) 10 mg DAILYPRN PRN [place] CONSTIPATION; Start at 12:15; Stop 02/01/17 at 12:14 Calcium/Vitamin D (Oscal D) 1,000 mg BID PO Last administered on 01/06/17 07: 58; Start 01/02/17 at 21:00; Stop 02/01/17 at 20:59 Docusate Sodium (Colace) 100 mg BID PO Last administered on 01/06/17 07:58; Start 01/02/17 at 21:00; Stop 02/01/17 at 20:59 Furosemide (Lasix) 40 mg DAILY PO Last administered on 01/06/17 07:58; Start 01/03/17 at 09:00; Stop 02/02/17 at 08:59 Gabapentin (Neurontin) 200 mg Q8H PO Last administered on 01/06/17 06:00; Start 01/02/17 at 14:00; Stop 02/01/17 at 13:59 Home Med (Med Rec Complete!) ASDIRECTED XX ; Start 01/02/17 at 14:00; Stop at 14:00; Status DC Magnesium Hydroxide (Milk Of Magnesia) 30 ml DAILYPRN PRN PO CONSTIPATION Last administered on 01/05/17 08:27; Start 01/02/17 at 12:15; Stop 02/01/17 at 12 :14 Naproxen (Naprosyn) 500 mg BIDP PRN PO PAIN; Start 01/02/17 at 12:15; Stop at 12:14 Omeprazole (PriLOSEC) 20 mg DAILY PO Last administered on 01/06/17 07:57; Start 01/03/17 at 09:00; Stop 02/02/17 at 08:59 Oxycodone HCl (Roxicodone, Oxyir) 5 mg Q4HP PRN PO PAIN SCALE 5-7 Last administered on 01/05/17 08:28; Start 01/02/17 at 12:15; Stop 01/09/17 at 12: 14 Oxycodone HCl (Roxicodone, Oxyir) 10 mg Q4HP PRN PO SEVERE PAIN (PS 8-10) Last administered on 01/06/17 02:54; Start 01/02/17 at 12:15; Stop 01/09/17 at 12: 14 Potassium Chloride (Micro-K Extencaps) 10 meq DAILY PO Last administered on 07:57; Start 01/03/17 at 09:00; Stop 02/02/17 at 08:59 Senna (Senokot) 2 tab QHS PO Last administered on 01/05/17 20:58; Start at 21:00; Stop 02/01/17 at 20:59 Tramadol HCl (Ultram Er) 100 mg BID PO Last administered on 01/06/17 07:57; Start 01/05/17 at 21:00; Stop 01/12/17 at 20:59 Warfarin Sodium (Coumadin) 2.5 mg 1T@17 PO ; Start 01/02/17 at 17:00; Stop at 17:00; Status DC Warfarin Sodium (Coumadin) 2.5 mg SuTuThSa@1700 PO Last administered on 18:26; Start 01/03/17 at 17:00; Stop 01/10/17 at 16:59 Warfarin Sodium (Coumadin) 5 mg MoWeFr@1700 PO Last administered on 01/05/17 16:03; Start 01/02/17 at 17:00; Stop 01/09/17 at 16:59 JUAN MULLINS MD Jan 06, 2017 09:41
[2017-01-06] MEDS ORDERED: FUROSEMIDE 20 MG TAB PO ONE (13:00)
--- NOTE | 2017-01-06 13:50 | IPNPDOC ---
Date Seen The patient was seen on 01/06/17. Progress Note HPI: 71year oldF who presented to 12/27/16 following a fall from a tree stand (Pt states the tree stand broke) at 10 ft, denies LOC. Pt was treated for pelvic fracture, non displaced L3 vertebral body fracture extending to rt pedicle. displaced Rt L1-4 fracture. Orthopedics at recommended no surgical intervention re pelvic fracture. Neurosurgery recommended no surgical intervention re vertebral body fracture. Pt transferred to the care of JOSEPHINE Paez. Pt received 1 u PRBC 01/03/17. Pt is to receive x 2 units PRBC today. Pt states she is feeling fatigued from therapy. Denies any fevers, chills, weakness, Headache, Chest Pain, Shortness of breath , cough, palpitations, abdominal pain, N/V/D or changes in bowel or bladder habits. PAST MEDICAL HISTORY: 1. Hepatitis B. 2. Gastroesophageal reflux disease. 3. Anemia. 4. Hypertension. 5. Transient ischemic attack (TIA). 6. Atrial fibrillation. On coumadin. 7. TRIXIE. CPAP. PAST SURGICAL HISTORY: 1. Tonsillectomy. 2. Tubal ligation. 3. Hysterectomy. 4. Cholecystectomy PE: GEN: 71yoF, appears stated age. No acute distress. Alert and oriented x 3. Pleasant, interactive. HEENT: Normocephalic, atraumatic. No facial asymmetry. Moist mucous membranes. Dentition fair. Pharynx pink and moist, no cobblestoning. Neck supple, trachea midline. CHEST: irreg irreg rate and rhythm, +S1, +S2 LUNGS: Clear to auscultation bilaterally. No wheezes, rales, or rhonchi. Breathing appears symmetric and easy. Patient is speaking in full sentences. No accessory muscle use. ABD: Round, soft, non-tender, non-distended. +Bowel sounds throughout. No rebound or guarding. No costovertebral angle tenderness. EXT: very large LEs, trace lower extremity edema appreciated. Ecchymosis LLE. Varicose veins noted. SKIN: pale appearing, dry, warm. No rashes. NEURO: Alert and oriented x 3. Cranial nerves III-XII are intact. No focal deficits appreciated. A&P: 71year oldF who presented to 12/27/16 following a fall from a tree stand (Pt states the tree stand broke) at 10 ft, denies LOC. Pt was treated for pelvic fracture, non displaced L3 vertebral body fracture extending to rt pedicle. displaced Rt L1-4 fracture. Orthopedics at recommended no surgical intervention re pelvic fracture. Neurosurgery recommended no surgical intervention re vertebral body fracture. 1. Multitrauma/pelvic fracture/vertebral fracture. F/U with Orthopedics and Neurosurgery as per . Mgmt as per ARU/Dr English. Pain control as per Dr English/ARU Bowel care as per ARU/Dr English. DVT prophylaxis. 2. Chronic AFib. atenolol rate control with hold parameters. Continue with Coumadin. Coumadin held today as per ARU attending related to INR trend. PT/INR ordered daily. INR 2.89. Monitor. 3. TRIXIE. CPAP with home settings. 4. HTN. Lasix 40 mg po daily/KCL. Pt will receive additional Lasix 20 mg PO today with transfusion. 5. GERD. Continue PPI. 6. H/O TIA. Continue ASA 81mg daily. 7. Anemia. Hgb 7.8. S/P 1 u PRBC 01/03/17. 2 u PRBC ordered today. Add Fe studies, B12/folate. Stool OB pending. Monitor. VS, I&O, 24H, Fishbone Vital Signs/I&O Vital Signs Date Time Temp Pulse Resp B/P (MAP) Pulse Ox O2 Delivery O2 Flow Rate FiO2 01/06/17 10:40 20 01/06/17 07:58 87 123/65 01/06/17 06:00 99.4 94 Room Air I&O- Last 24 Hours up to 6 AM 01/07/17 05:59 Intake Total 540 ml Balance 540 ml Laboratory Data 24H LABS Laboratory Tests 2 01/06/17 06:19: Nucleated Red Blood Cells % (auto) 0.0, Prothrombin Time 31.5H, Prothromb Time International Ratio 2.89 CBC/BMP Laboratory Tests 01/06/17 06:19 Red Blood Count 2.52 L, Mean Corpuscular Volume 95.6, Mean Corpuscular Hemoglobin 31.0, Mean Corpuscular Hemoglobin Concent 32.4, Red Cell Distribution Width 14.6 H Ellie Jacobsen Jan 06, 2017 13:50
[2017-01-06 14:16] LABS: PERCENT SATURATION 14.1 % (13.2-45.0)
[2017-01-06 14:26] LABS: FOLATE 20.6 NG/ML (>5.4)
[2017-01-06 14:35] VITALS: BP 107/61
[2017-01-06] MEDS: ACETAMINOPHEN TAB 650MG DOSE (2X325MG) PO PRN (15:02)
[2017-01-06] MEDS: ANALGESIC BALM CRM 120 GM TOP SCH ×2 (16:39→21:28)
[2017-01-06 20:20] VITALS: BP 138/70
[2017-01-06] MEDS: SENNA 8.6 MG TAB (SENOKOT) PO SCH (21:27)
[2017-01-07] MEDS: ACETAMINOPHEN TAB 650MG DOSE (2X325MG) PO PRN (03:50)
[2017-01-07] MEDS: GABAPENTIN 100 MG CAP PO SCH ×3 (05:41→21:42)
[2017-01-07 06:00] VITALS: BP 146/70
[2017-01-07 06:45] LABS: MEAN CORPUSCULAR HEMOGLOBIN 31.2 pg (27.0-33.0); MEAN CORPUSCULAR HGB CONC 33.7 g/dl (32.0-36.5); MEAN CORPUSCULAR VOLUME 92.6 fl (80.0-96.0); PLATELET COUNT, AUTOMATED 261 10^3/uL (150-450); RED CELL DISTRIBUTION WIDTH 15.9 % (11.5-14.5); WHITE BLOOD COUNT 10.2 10^3/uL (4.0-10.0)
[2017-01-07 06:57] LABS: INR 2.7
[2017-01-07 07:10] LABS: ALBUMIN 2.4 GM/DL (3.2-5.2); ALBUMIN/GLOBULIN RATIO 0.73 (1.00-1.93); ALKALINE PHOSPHATASE 101 U/L (45-117); ALT/SGPT 26 U/L (12-78); ANION GAP 6 MEQ/L (8-16); AST/SGOT 74 U/L (7-37); BILIRUBIN,TOTAL 1.9 MG/DL (0.2-1.0); BLOOD UREA NITROGEN 15 MG/DL (7-18); CALCIUM LEVEL 7.9 MG/DL (8.8-10.2); CARBON DIOXIDE LEVEL 29 MEQ/L (21-32); CHLORIDE LEVEL 100 MEQ/L (98-107); CREATININE FOR GFR 0.76 MG/DL (0.55-1.02); GLOMERULAR FILTRATION RATE > 60.0 (>39); GLUCOSE, FASTING 107 MG/DL (83-110); POTASSIUM SERUM 4.1 MEQ/L (3.5-5.1); SODIUM LEVEL 135 MEQ/L (136-145); TOTAL PROTEIN 5.7 GM/DL (6.4-8.2)
[2017-01-07] MEDS: ASPIRIN 81 MG ENTERIC TAB PO SCH (07:58)
[2017-01-07] MEDS: BACLOFEN 5MG PER 1/2 TABLET PO SCH ×3 (07:58→18:01)
[2017-01-07] MEDS: OMEPRAZOLE 20 MG CAP PO SCH (07:58)
[2017-01-07] MEDS: DOCUSATE SODIUM 100 MG CAP PO SCH ×2 (07:58→21:42)
[2017-01-07] MEDS: POTASSIUM CHLORIDE 10 MEQ SR TABLET PO SCH ×2 (07:59→21:42)
[2017-01-07] MEDS: ATENOLOL 25 MG TAB PO SCH (07:59)
[2017-01-07] MEDS: CALCIUM/VITAMIN D 500 MG TAB PO SCH ×2 (07:59→21:42)
[2017-01-07] MEDS: traMADol ER 100MG TABLET (ULTRAM ER) PO SCH ×2 (07:59→21:42)
[2017-01-07] MEDS: FUROSEMIDE 40 MG TAB PO SCH (07:59)
[2017-01-07] MEDS: ASCORBIC ACID 500 MG TAB PO SCH (07:59)
[2017-01-07] MEDS: ANALGESIC BALM CRM 120 GM TOP SCH ×3 (08:00→21:00)
--- NOTE | 2017-01-07 10:12 | IPNPDOC ---
PM&R Progress Note Grout Machine Tender Progress Note DATE OF SERVICE: 01/07/17 DATE OF ADMISSION: Jan 02, 2017 at 12:35 INPATIENT REHABILITATION ADMISSION DAY: #6 SUBJECTIVE: Patient is a right-handed 71-year-old white female who was preparing to use the tree stand for deer hunting and was getting out of the stand when she felt part of it give way and she fell from this 10 foot high stand onto part of the bracing that gave way causing several puncture wounds in her right buttocks as well as the above described fractures. 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 Patient is on weightbearing as tolerated, however, is to use thoracolumbosacral orthosis (TLSO) brace whenever out of bed. Currently, pain in posterior right thigh around punctures and ecchymosis. Patient with crampy thigh pain and does not feel she will be ready for discharge to home tomorrow. ALLERGIES: See Below MEDICATIONS: Reviewed, see below. OBJECTIVE: VITAL SIGNS: Please see below. PHYSICAL EXAMINATION: GENERAL: Obese, elderly, white female, who is alert and well oriented. She is in very mild musculoskeletal distress wearing a TLSO and sitting up on the edge of the bed with good balance. HEENT: Normal cephalic/atraumatic. CARDIOVASCULAR: Regular rate and rhythm with normal S1 and S2. 2/4 bilateral radial pulses. Palmar lines with some redness in them again. LUNGS: All howe clear to auscultation. ABDOMEN: Obese/benign with normal bowel sounds in all quadrants. NEUROLOGICAL: Alert and oriented 4. Speech is clear coherent and appropriate. Affect is pleasant and cooperative. Memory is intact. Patient with some guarding around hips and low back and shoulders in movements. However strength is 4-5 out of 5 in bilateral upper and lower extremities. SKIN: Right thigh puncture wounds without drainage or fluctuance or focal erythema. Area of the ecchymosis with less purple remaining, and mainly spreading yellow and smaller tender brawny feeling area. The area is warmer to touch vs the rest of the thigh/hip area as well as mild tenderness. LABORATORY DATA: Reviewed. Please see below. MICROBIOLOGY: Please see below. IMAGING: No new images. DVT prophylaxis ordered?: On Coumadin schedule with today's INR 2.70 and target range 2.0-3.0 on INR. Also using FIONA hose. I will resume her prior Coumading schedule. ASSESSMENT AND PLAN: 1. Rehabilitation multiple trauma including L3 compression fracture, L1-4 transverse process fractures, right superior and inferior rami fractures of the pelvis, right pelvic hematoma secondary to fracture and right buttocks puncture wounds: Patient was unable to do full therapies on Thursday due to severe anemia for which she has been transfused. Patient has since been able to participate in 3 hours of therapy per day of physical and occupational therapy. Patient showing improved balance and motor control. Anticipated date of discharge is 01/08/17 will be adjusted at Team Rounds tomorrow as the anemia and right thigh spasms are slowing down her progress. I will increase the Baclofen to help with the spasms. 2. Anemia: Patient received two units of packed red blood cells on Thursday and H &H is 8.4 and 24.9 today 01/07/17 up from 7.8 and 24.1%, while BUN is improved. We will continue to monitor this. BP and Heart Rate are stable. 3. Hypoalbuminemia: Patient has been stressed by patient multiple fractures and other injuries and albumin is better slightly at 2.4 today on 01/07/17, but Prealbumin is low at 13.9, so we are probably not catching up. We will continue to monitor this and try and work on nutrition. 4. elevated BUN: Patient appears to be mildly dehydrated with a BUN of 29 and creatinine of 0.87 on 01/05/17 , now post 2 Units of PRBC and fluids BUN is normal at 15 and Creatinine is 0.76. We will continue to monitor this along with need for nutritional support. I will recheck CMP tomorrow. 5. Total bilirubin: This is more elevated at 1.7 from prior 1.4 and we will continue to monitor this. AST now elevated at 74, other LFT's are normal. Repeat CMP tomorrow. TIME SPENT: Chart Review, examination and documentation require greater than 25 minutes. Allergies Coded Allergies: Clarithromycin (Verified Allergy, Unknown, 06/10/12) Codeine (Verified Allergy, Unknown, 06/10/12) Fluorescein (Unverified Allergy, Unknown, ANAPHYLACTIC SHOCK, 06/11/15) Morphine (Verified Allergy, Unknown, 06/10/12) Vital Signs Vital Signs Date Time Temp Pulse Resp B/P (MAP) Pulse Ox O2 Delivery O2 Flow Rate FiO2 01/07/17 07:59 89 146/70 01/07/17 06:00 98.9 18 98 Room Air Laboratory Data CBC/BMP Laboratory Tests 01/07/17 06:35 Red Blood Count 2.69 L, Mean Corpuscular Volume 92.6, Mean Corpuscular Hemoglobin 31.2, Mean Corpuscular Hemoglobin Concent 33.7, Red Cell Distribution Width 15.9 H, Calcium Level 7.9 L, Aspartate Amino Transf (AST/SGOT ) 74 H, Alanine Aminotransferase (ALT/SGPT) 26, Alkaline Phosphatase 101, Total Bilirubin 1.9 H, Total Protein 5.7 L, Albumin 2.4 L Labs 24H Laboratory Tests 2 01/07/17 06:35: Nucleated Red Blood Cells % (auto) 0.0, Prothrombin Time 29.8H, Prothromb Time International Ratio 2.70, Anion Gap 6L, Glomerular Filtration Rate > 60.0, Blood Urea Nitrogen 15, Creatinine 0.76, Sodium Level 135L, Potassium Level 4.1 , Chloride Level 100, Carbon Dioxide Level 29, Calcium Level 7.9L, Aspartate Amino Transf (AST/SGOT) 74H, Alanine Aminotransferase (ALT/SGPT) 26, Alkaline Phosphatase 101, Total Bilirubin 1.9H, Total Protein 5.7L, Albumin 2.4L, Albumin /Globulin Ratio 0.73L, Prealbumin 13.9L Current Medications Current Medications Current Medications Acetaminophen (Tylenol Tab) 650 mg Q6HP PRN PO PAIN OR FEVER Last administered on 01/07/17 03:50; Start 01/02/17 at 12:15; Stop 02/01/17 at 12:14 Ascorbic Acid (Vitamin C) 500 mg DAILY PO Last administered on 01/07/17 07:59 ; Start 01/03/17 at 09:00; Stop 02/02/17 at 08:59 Aspirin (Ecotrin) 81 mg DAILY PO Last administered on 01/07/17 07:58; Start 01/03/17 at 09:00; Stop 02/02/17 at 08:59 Atenolol (Tenormin) 25 mg DAILY PO Last administered on 01/07/17 07:59; Start 01/03/17 at 09:00; Stop 02/02/17 at 08:59 Baclofen (Lioresal) 5 mg BID PO Last administered on 01/07/17 07:58; Start at 21:00; Stop 01/07/17 at 09:44; Status DC Baclofen (Lioresal) 5 mg Q6H PO ; Start 01/07/17 at 12:00; Stop 02/06/17 at 11: 59 Bisacodyl (Dulcolax Suppository) 10 mg DAILYPRN PRN [place] CONSTIPATION; Start at 12:15; Stop 02/01/17 at 12:14 Calcium/Vitamin D (Oscal D) 1,000 mg BID PO Last administered on 01/07/17 07: 59; Start 01/02/17 at 21:00; Stop 02/01/17 at 20:59 Docusate Sodium (Colace) 100 mg BID PO Last administered on 01/07/17 07:58; Start 01/02/17 at 21:00; Stop 02/01/17 at 20:59 Furosemide (Lasix) 40 mg DAILY PO Last administered on 01/07/17 07:59; Start 01/03/17 at 09:00; Stop 02/02/17 at 08:59 Gabapentin (Neurontin) 200 mg Q8H PO Last administered on 01/07/17 05:41; Start 01/02/17 at 14:00; Stop 02/01/17 at 13:59 Home Med (Med Rec Complete!) ASDIRECTED XX ; Start 01/02/17 at 14:00; Stop at 14:00; Status DC Magnesium Hydroxide (Milk Of Magnesia) 30 ml DAILYPRN PRN PO CONSTIPATION Last administered on 01/05/17 08:27; Start 01/02/17 at 12:15; Stop 02/01/17 at 12 :14 Menthol/Methyl Salicylate (Bengay Cream) right posterior thigh TID TOP Last administered on 01/07/17 08:00; Start 01/06/17 at 16:00; Stop 01/16/17 at 23: 55 Naproxen (Naprosyn) 500 mg BIDP PRN PO PAIN; Start 01/02/17 at 12:15; Stop at 12:14 Omeprazole (PriLOSEC) 20 mg DAILY PO Last administered on 01/07/17 07:58; Start 01/03/17 at 09:00; Stop 02/02/17 at 08:59 Oxycodone HCl (Roxicodone, Oxyir) 5 mg Q4HP PRN PO PAIN SCALE 5-7 Last administered on 01/05/17 08:28; Start 01/02/17 at 12:15; Stop 01/14/17 at 23: 55 Oxycodone HCl (Roxicodone, Oxyir) 10 mg Q4HP PRN PO SEVERE PAIN (PS 8-10) Last administered on 01/06/17 14:04; Start 01/02/17 at 12:15; Stop 01/14/17 at 23: 55 Potassium Chloride (Micro-K Extencaps) 10 meq DAILY PO Last administered on 07:59; Start 01/03/17 at 09:00; Stop 02/02/17 at 08:59 Senna (Senokot) 2 tab QHS PO Last administered on 01/06/17 21:27; Start at 21:00; Stop 02/01/17 at 20:59 Tramadol HCl (Ultram Er) 100 mg BID PO Last administered on 01/07/17 07:59; Start 01/05/17 at 21:00; Stop 01/12/17 at 20:59 Warfarin Sodium (Coumadin) 2.5 mg 1T@17 PO ; Start 01/02/17 at 17:00; Stop at 17:00; Status DC Warfarin Sodium (Coumadin) 2.5 mg SuTuThSa@1700 PO Last administered on 18:26; Start 01/03/17 at 17:00; Stop 01/14/17 at 23:55; Status Future hold Warfarin Sodium (Coumadin) 5 mg MoWeFr@1700 PO Last administered on 01/05/17 16:03; Start 01/02/17 at 17:00; Stop 01/14/17 at 23:55 JUAN MULLINS MD Jan 07, 2017 10:12
--- NOTE | 2017-01-07 11:58 | IPNPDOC ---
Date Seen The patient was seen on 01/07/17. Progress Note Progress Note HPI: 71year oldF who presented to 12/27/16 following a fall from a tree stand (Pt states the tree stand broke) at 10 ft, denies LOC. Pt was treated for pelvic fracture, non displaced L3 vertebral body fracture extending to rt pedicle. displaced Rt L1-4 fracture. Orthopedics at recommended no surgical intervention re pelvic fracture. Neurosurgery recommended no surgical intervention re vertebral body fracture. Pt transferred to the care of JOSEPHINE Paez, 01/02/17. Pt received 1 u PRBC 01/03/17, 2 units PRBC 01/06/17. Pt states she is having spasms in RLE. Some cough today. Denies any fevers, chills, weakness, Headache, Chest Pain, Shortness of breath , cough, palpitations, abdominal pain, N/V/D or changes in bowel or bladder habits. PAST MEDICAL HISTORY: 1. Hepatitis B. 2. Gastroesophageal reflux disease. 3. Anemia. 4. Hypertension. 5. Transient ischemic attack (TIA). 6. Atrial fibrillation. On coumadin. 7. TRIXIE. CPAP. PAST SURGICAL HISTORY: 1. Tonsillectomy. 2. Tubal ligation. 3. Hysterectomy. 4. Cholecystectomy PE: GEN: 71yoF, appears stated age. No acute distress. Alert and oriented x 3. Pleasant, interactive. HEENT: Normocephalic, atraumatic. No facial asymmetry. Moist mucous membranes. Dentition fair. Pharynx pink and moist. Neck supple, trachea midline. CHEST: irreg irreg rate and rhythm, +S1, +S2. JVD not visible sitting. LUNGS: Clear to auscultation bilaterally. No wheezes, rales, or rhonchi. Breathing appears symmetric and easy. Patient is speaking in full sentences. No accessory muscle use. ABD: Round, soft, non-tender, non-distended. +Bowel sounds throughout. No rebound or guarding. No costovertebral angle tenderness. EXT:trace lower extremity edema appreciated. Ecchymosis LLE, no change. Varicose veins noted. SKIN: pale appearing, dry, warm. No rashes. NEURO: Alert and oriented x 3. Cranial nerves III-XII are intact. No focal deficits appreciated. A&P: 71year oldF who presented to 12/27/16 following a fall from a tree stand (Pt states the tree stand broke) at 10 ft, denies LOC. Pt was treated for pelvic fracture and hematoma, non displaced L3 vertebral body fracture extending to rt pedicle. displaced Rt L1-4 fracture. Orthopedics at recommended no surgical intervention re pelvic fracture. Neurosurgery recommended no surgical intervention re vertebral body fracture. 1. Multitrauma/pelvic fracture/vertebral fracture. F/U with Orthopedics and Neurosurgery as per . Mgmt as per ARU/Dr English. Pain control as per Dr English/ARU Bowel care as per ARU/Dr English. DVT prophylaxis. 2. Chronic AFib. atenolol rate control with hold parameters. Continue with Coumadin. PT/INR ordered daily. INR 2.70. Monitor. 3. TRIXIE. CPAP with home settings. 4. HTN. Resume previous dose Lasix 80 mg po daily/KCL 10 meq BID. Daily wt. I/O. 5. GERD. Continue PPI. 6. H/O TIA. Continue ASA 81mg daily. 7. Anemia. Pt denies any bleeding, change in bowel habits. No increased pain reported. Hgb 8.4. S/P 1 u PRBC 01/03/17. 2 u PRBC 01/06/17. Fe studies, B12/folate. Stool OB pending. Monitor. 8. Cough. Non productive. Resume Lasix as above. Check CXR. Pt states she uses albuterol at home for h/o chronic bronchitis. Will add albuterol Q4 as needed. Encourage I/S. VS, I&O, 24H, Fishbone Vital Signs/I&O Vital Signs Date Time Temp Pulse Resp B/P (MAP) Pulse Ox O2 Delivery O2 Flow Rate FiO2 01/07/17 07:59 89 146/70 01/07/17 06:00 98.9 18 98 Room Air Laboratory Data 24H LABS Laboratory Tests 2 01/07/17 06:35: Nucleated Red Blood Cells % (auto) 0.0, Prothrombin Time 29.8H, Prothromb Time International Ratio 2.70, Anion Gap 6L, Glomerular Filtration Rate > 60.0, Blood Urea Nitrogen 15, Creatinine 0.76, Sodium Level 135L, Potassium Level 4.1 , Chloride Level 100, Carbon Dioxide Level 29, Calcium Level 7.9L, Aspartate Amino Transf (AST/SGOT) 74H, Alanine Aminotransferase (ALT/SGPT) 26, Alkaline Phosphatase 101, Total Bilirubin 1.9H, Total Protein 5.7L, Albumin 2.4L, Albumin /Globulin Ratio 0.73L, Prealbumin 13.9L CBC/BMP Laboratory Tests 01/07/17 06:35 Red Blood Count 2.69 L, Mean Corpuscular Volume 92.6, Mean Corpuscular Hemoglobin 31.2, Mean Corpuscular Hemoglobin Concent 33.7, Red Cell Distribution Width 15.9 H, Calcium Level 7.9 L, Aspartate Amino Transf (AST/SGOT ) 74 H, Alanine Aminotransferase (ALT/SGPT) 26, Alkaline Phosphatase 101, Total Bilirubin 1.9 H, Total Protein 5.7 L, Albumin 2.4 L Ellie Jacobsen Jan 07, 2017 11:58
[2017-01-07] MEDS ORDERED: FUROSEMIDE 40 MG TAB PO ONE (12:00)
[2017-01-07] MEDS: oxyCODONE 5MG TAB PO PRN (12:23)
--- NOTE | 2017-01-07 13:28 | REP ---
TWO VIEW CHEST: Two views of the chest are performed are compared to a prior study of 06/11/2015. There is mild cardiomegaly. Scattered interstitial fibrotic changes are present without evidence of acute infiltrate. There is some tortuosity of the thoracic aorta. The mediastinal silhouette is unremarkable and unchanged. There are degenerative changes of the spine. IMPRESSION: Chronic findings and mild cardiomegaly. No acute infiltrate. Signed by Néstor Morales MD 01/08/2017 07:22 P
[2017-01-07 14:00] VITALS: BP 136/68
[2017-01-07] MEDS: ALBUTEROL SULFATE 2.5 MG/0.5 ML INH NEB SOLN NEB PRN ×2 (14:54→21:28)
[2017-01-07] MEDS: WARFARIN SOD 5 MG TAB PO SCH (18:02)
[2017-01-07] MEDS: SENNA 8.6 MG TAB (SENOKOT) PO SCH (21:41)
[2017-01-07 21:49] VITALS: BP 112/68
[2017-01-08] MEDS: BACLOFEN 5MG PER 1/2 TABLET PO SCH ×4 (00:28→17:53)
[2017-01-08] MEDS: oxyCODONE 5MG TAB PO PRN ×3 (01:02→12:40)
[2017-01-08] MEDS: GABAPENTIN 100 MG CAP PO SCH ×3 (05:56→22:43)
[2017-01-08] MEDS: MOM 30ML SUSPENSION UDC PO PRN (05:57)
[2017-01-08 06:00] VITALS: BP 148/76
[2017-01-08 07:04] LABS: MEAN CORPUSCULAR HEMOGLOBIN 31.5 pg (27.0-33.0); MEAN CORPUSCULAR HGB CONC 33.3 g/dl (32.0-36.5); MEAN CORPUSCULAR VOLUME 94.4 fl (80.0-96.0); PLATELET COUNT, AUTOMATED 302 10^3/uL (150-450); RED CELL DISTRIBUTION WIDTH 15.7 % (11.5-14.5); WHITE BLOOD COUNT 10.1 10^3/uL (4.0-10.0)
[2017-01-08 07:15] LABS: INR 2.72
[2017-01-08 07:29] LABS: ALBUMIN 2.3 GM/DL (3.2-5.2); ALBUMIN/GLOBULIN RATIO 0.55 (1.00-1.93); ALKALINE PHOSPHATASE 107 U/L (45-117); ALT/SGPT 28 U/L (12-78); ANION GAP 5 MEQ/L (8-16); AST/SGOT 74 U/L (7-37); BILIRUBIN,TOTAL 1.5 MG/DL (0.2-1.0); BLOOD UREA NITROGEN 12 MG/DL (7-18); CALCIUM LEVEL 8.2 MG/DL (8.8-10.2); CARBON DIOXIDE LEVEL 31 MEQ/L (21-32); CHLORIDE LEVEL 100 MEQ/L (98-107); CREATININE FOR GFR 0.79 MG/DL (0.55-1.02); GLOMERULAR FILTRATION RATE > 60.0 (>39); GLUCOSE, FASTING 107 MG/DL (83-110); SODIUM LEVEL 136 MEQ/L (136-145); TOTAL PROTEIN 6.5 GM/DL (6.4-8.2)
[2017-01-08] MEDS: ASPIRIN 81 MG ENTERIC TAB PO SCH (08:28)
[2017-01-08] MEDS: traMADol ER 100MG TABLET (ULTRAM ER) PO SCH ×2 (08:28→20:31)
[2017-01-08] MEDS: OMEPRAZOLE 20 MG CAP PO SCH (08:28)
[2017-01-08] MEDS: DOCUSATE SODIUM 100 MG CAP PO SCH ×2 (08:28→20:31)
[2017-01-08] MEDS: ASCORBIC ACID 500 MG TAB PO SCH (08:28)
[2017-01-08] MEDS: FUROSEMIDE 40 MG TAB PO SCH (08:28)
[2017-01-08] MEDS: CALCIUM/VITAMIN D 500 MG TAB PO SCH ×2 (08:28→20:31)
[2017-01-08] MEDS: POTASSIUM CHLORIDE 10 MEQ SR TABLET PO SCH ×2 (08:29→20:31)
[2017-01-08] MEDS: ANALGESIC BALM CRM 120 GM TOP SCH ×3 (08:30→20:31)
[2017-01-08] MEDS: ATENOLOL 25 MG TAB PO SCH (08:30)
[2017-01-08] MEDS ORDERED: PHYTONADIONE 5 MG TAB PO ONE (12:15)
[2017-01-08] MEDS ORDERED: FUROSEMIDE 20 MG/2 ML VIAL (J1940) IV ONE (12:15)
--- NOTE | 2017-01-08 12:24 | IPNPDOC ---
Date Seen The patient was seen on 01/08/17. Progress Note HPI: 71year oldF who presented to 12/27/16 following a fall from a tree stand (Pt states the tree stand broke) at 10 ft, denies LOC. Pt was treated for pelvic fracture, non displaced L3 vertebral body fracture extending to rt pedicle. displaced Rt L1-4 fracture. Orthopedics at recommended no surgical intervention re pelvic fracture. Neurosurgery recommended no surgical intervention re vertebral body fracture. Pt transferred to the care of JOSEPHINE Paez, 01/02/17. Pt received 1 u PRBC 01/03/17, 2 units PRBC 01/06/17. Pt states she is having increased pain today in the rt hip and buttock area. Denies any fevers, chills, weakness, Headache, Chest Pain, Shortness of breath , cough, palpitations, abdominal pain, N/V/D or changes in bowel or bladder habits. PAST MEDICAL HISTORY: 1. Hepatitis B. 2. Gastroesophageal reflux disease. 3. Anemia. 4. Hypertension. 5. Transient ischemic attack (TIA). 6. Atrial fibrillation. On coumadin. 7. TRIXIE. CPAP. PAST SURGICAL HISTORY: 1. Tonsillectomy. 2. Tubal ligation. 3. Hysterectomy. 4. Cholecystectomy PE: GEN: 71yoF, appears stated age. No acute distress. Alert and oriented x 3. Pleasant, interactive. HEENT: Normocephalic, atraumatic. No facial asymmetry. Moist mucous membranes. Dentition fair. Pharynx pink and moist. Neck supple, trachea midline. CHEST: irreg irreg rate and rhythm, +S1, +S2. JVD not visible sitting. LUNGS: Clear to auscultation bilaterally. No wheezes, rales, or rhonchi. Breathing appears symmetric and easy. Patient is speaking in full sentences. No accessory muscle use. ABD: Round, soft, non-tender, non-distended. +Bowel sounds throughout. No rebound or guarding. No costovertebral angle tenderness. EXT:trace lower extremity edema appreciated. Ecchymosis RLE, no change. Varicose veins noted. LLE with pulses 2+, RLE and foot is pink and warm. SKIN: pale appearing, dry, warm. No rashes. Hematoma noted around Rt buttock area with ecchymosis, healing puncture wounds noted. Ecchymosis extends to the RT thigh area as well. No drainage, no erythema. NEURO: Alert and oriented x 3. Cranial nerves III-XII are intact. No focal deficits appreciated. A&P: 71year oldF who presented to 12/27/16 following a fall from a tree stand (Pt states the tree stand broke) at 10 ft, denies LOC. Pt was treated for pelvic fracture, non displaced L3 vertebral body fracture extending to rt pedicle. displaced Rt L1-4 fracture. Orthopedics at recommended no surgical intervention re pelvic fracture. Neurosurgery recommended no surgical intervention re vertebral body fracture. 1. Multitrauma/pelvic fracture/vertebral fracture. F/U with Orthopedics and Neurosurgery as per . Mgmt as per ARU/Dr English. Pain control as per Dr English/ARU Bowel care as per ARU/Dr English. DVT prophylaxis. 2. Chronic AFib. atenolol rate control with hold parameters. Coumadin on hold. PT/INR ordered daily. INR 2.70. Monitor. 3. TRIXIE. CPAP with home settings. 4. HTN. Lasix 80 mg po daily/KCL 10 meq BID. Daily wt. I/O. Lasix 20 mg IV between units PRBC today. 5. GERD. Continue PPI. 6. H/O TIA. Continue ASA 81mg daily. 7. Anemia. H/O pelvic hematoma/fracture. Pt denies any bleeding, change in bowel habits. Today, Pt is complaining of increased pain in the Rt hip area and buttock area, R/O increased hematoma/abscess. Hgb 8.4. S/P 1 u PRBC 01/03/17. 2 u PRBC 01/06/17. Fe studies, B12/folate. Stool OB pending. Discussed with Dr Parrish. Vit k po x 1 dose 5 mg. Hold Coumadin. Cont daily INR. Transfuse additional 2 u PRBC today. Check CT Rt hip and pelvis area. Monitor. 8. Cough. Resolved. Lasix as above. CXR. 01/07/17 Chronic findings and mild cardiomegaly. No acute infiltrate. Pt states she uses albuterol at home for h/o chronic bronchitis. Cont albuterol Q4 as needed. Encourage I/S. Addendum. Gluteal hematoma noted on CT. Discussed with Dr Vásquez. Cont with plan above. Monitor for any changes. RLE and Rt foot with intact pulses and skin is pink and warm. Pt is moving LEs and has participated with therapy today. VS, I&O, 24H, Fishbone Vital Signs/I&O Vital Signs Date Time Temp Pulse Resp B/P (MAP) Pulse Ox O2 Delivery O2 Flow Rate FiO2 01/08/17 09:10 18 01/08/17 08:30 92 148/76 01/08/17 06:00 99.6 97 Room Air I&O- Last 24 Hours up to 6 AM 01/09/17 06:00 Intake Total 360 ml Balance 360 ml Laboratory Data 24H LABS Laboratory Tests 2 01/08/17 06:52: Nucleated Red Blood Cells % (auto) 0.0, Prothrombin Time 30.0H, Prothromb Time International Ratio 2.72, Anion Gap 5L, Glomerular Filtration Rate > 60.0, Blood Urea Nitrogen 12, Creatinine 0.79, Sodium Level 136, Potassium Level 4.0, Chloride Level 100, Carbon Dioxide Level 31, Calcium Level 8.2L, Aspartate Amino Transf (AST/SGOT) 74H, Alanine Aminotransferase (ALT/SGPT) 28, Alkaline Phosphatase 107, Total Bilirubin 1.5H, Total Protein 6.5, Albumin 2.3L, Albumin/ Globulin Ratio 0.55L CBC/BMP Laboratory Tests 01/08/17 06:52 Red Blood Count 2.67 L, Mean Corpuscular Volume 94.4, Mean Corpuscular Hemoglobin 31.5, Mean Corpuscular Hemoglobin Concent 33.3, Red Cell Distribution Width 15.7 H, Calcium Level 8.2 L, Aspartate Amino Transf (AST/SGOT ) 74 H, Alanine Aminotransferase (ALT/SGPT) 28, Alkaline Phosphatase 107, Total Bilirubin 1.5 H, Total Protein 6.5, Albumin 2.3 L Ellie Jacobsen Jan 08, 2017 12:24
[2017-01-08] MEDS ORDERED: PHYTONADIONE 2.5 MG **1/2 TAB PO ONE (13:00)
[2017-01-08 14:00] VITALS: BP 130/83
--- NOTE | 2017-01-08 14:36 | REP ---
Right lower extremity Duplex Doppler venous ultrasound: Real time compression and duplex Doppler interrogation of the right lower extremity deep venous system is performed. The right common femoral, superficial femoral and popliteal veins are fully compressible with transducer pressure and demonstrate normal spontaneous and phasic flow, without evidence of deep venous thrombosis. Impression: No evidence of deep venous thrombosis of the right lower extremity femoral popliteal venous system. There is a complex popliteal cyst measuring 4.5 x 3.1 x 3.9 cm. Signed by Néstor Morales MD 01/08/2017 02:28 P
--- NOTE | 2017-01-08 14:39 | REP ---
CT of the right hip: Axial images are acquired helical scanning and a reformatted sagittal coronal projections. There is a fracture of the acetabular anterior strut. There is a fracture of the right ischium. No fracture of the femoral head or neck. No dislocation. Signed by Néstor Davis MD 01/08/2017 02:31 P
[2017-01-08] MEDS: ALBUTEROL SULFATE 2.5 MG/0.5 ML INH NEB SOLN NEB PRN ×2 (14:50→21:33)
--- NOTE | 2017-01-08 14:53 | REP ---
CT of the abdomen and pelvis without IV or bowel contrast: The visualized lung howe demonstrate dependent atelectasis, fibrotic changes and cardiomegaly. The unenhanced hepatic parenchyma is homogeneous. There are calcified granulomas. There are surgical clips in the gallbladder fossa. The pancreas and spleen are unremarkable. The abdominal aorta is unremarkable. There is a 2.7 cm left adrenal nodule. Consider follow-up MRI. The right adrenal is unremarkable. There is a horseshoe kidney. There is no hydronephrosis. No renal calculi. In the absence of IV contrast study is insensitive for renal masses. The bowel and mesentery are unremarkable. There is no ascites. There are no focal intra-abdominal fluid collections to suggest abscess. Pelvis: The appendix is not identified. There is no pericecal phlegmon. There is no pelvic ascites or adenopathy. There is a hysterectomy. Vaginal cuff and adnexa are unremarkable. The bladder is unremarkable. There are occasional diverticula in the descending colon and sigmoid colon without diverticulitis. There is a fracture of the anterior strut of the right acetabulum and a fracture of the right ischium. No fracture of the right femoral head or neck. There is a hyperdense 10.4 cm mass posteriorly in the right gluteus mi compatible with hematoma. I suspect there is a unicortical fracture of the sacrum inferomedially on the right near the inferior aspect of the right sacroiliac joint.. Impression: There is a hyperdense mass posteromedially in the right gluteus mi muscle measuring 10.4 cm transversely, compatible with a gluteus hematoma. There is a fracture of the anterior strut of the right acetabulum and a fracture right ischium. I suspect there is a unicortical fracture of the sacrum inferomedially on the right. There is a cholecystectomy. There is a hysterectomy. There is no ascites or adenopathy. The appendix is not identified, however there is no pericecal phlegmon. Signed by Néstor Davis MD 01/08/2017 02:44 P
[2017-01-08] MEDS: SENNA 8.6 MG TAB (SENOKOT) PO SCH (20:31)
[2017-01-08 20:35] VITALS: BP 127/70
[2017-01-09] MEDS: BACLOFEN 5MG PER 1/2 TABLET PO SCH ×5 (00:03→23:39)
[2017-01-09] MEDS: GABAPENTIN 100 MG CAP PO SCH ×3 (05:46→21:17)
[2017-01-09 05:49] VITALS: BP 123/61
[2017-01-09 06:30] VITALS: BP 137/66
[2017-01-09] MEDS: oxyCODONE 5MG TAB PO PRN ×2 (06:57→13:30)
[2017-01-09 07:09] LABS: MEAN CORPUSCULAR HEMOGLOBIN 30.5 pg (27.0-33.0); MEAN CORPUSCULAR HGB CONC 32.5 g/dl (32.0-36.5); PLATELET COUNT, AUTOMATED 379 10^3/uL (150-450); RED CELL DISTRIBUTION WIDTH 15.1 % (11.5-14.5); WHITE BLOOD COUNT 10.1 10^3/uL (4.0-10.0)
[2017-01-09 07:20] LABS: INR 1.71
[2017-01-09 07:26] LABS: ALBUMIN 2.5 GM/DL (3.2-5.2); ALBUMIN/GLOBULIN RATIO 0.57 (1.00-1.93); ALKALINE PHOSPHATASE 121 U/L (45-117); ALT/SGPT 30 U/L (12-78); ANION GAP 8 MEQ/L (8-16); AST/SGOT 63 U/L (7-37); BLOOD UREA NITROGEN 14 MG/DL (7-18); CALCIUM LEVEL 8.3 MG/DL (8.8-10.2); CARBON DIOXIDE LEVEL 29 MEQ/L (21-32); CHLORIDE LEVEL 98 MEQ/L (98-107); CREATININE FOR GFR 0.74 MG/DL (0.55-1.02); GLOMERULAR FILTRATION RATE > 60.0 (>39); GLUCOSE, FASTING 110 MG/DL (83-110); POTASSIUM SERUM 3.9 MEQ/L (3.5-5.1); SODIUM LEVEL 135 MEQ/L (136-145); TOTAL PROTEIN 6.9 GM/DL (6.4-8.2)
[2017-01-09] MEDS: FUROSEMIDE 40 MG TAB PO SCH (08:27)
[2017-01-09] MEDS: DOCUSATE SODIUM 100 MG CAP PO SCH ×2 (08:27→21:17)
[2017-01-09] MEDS: ASCORBIC ACID 500 MG TAB PO SCH (08:27)
[2017-01-09] MEDS: ASPIRIN 81 MG ENTERIC TAB PO SCH (08:27)
[2017-01-09] MEDS: POTASSIUM CHLORIDE 10 MEQ SR TABLET PO SCH ×2 (08:27→21:15)
[2017-01-09] MEDS: CALCIUM/VITAMIN D 500 MG TAB PO SCH ×2 (08:27→21:16)
[2017-01-09] MEDS: OMEPRAZOLE 20 MG CAP PO SCH (08:27)
[2017-01-09] MEDS: traMADol ER 100MG TABLET (ULTRAM ER) PO SCH ×2 (08:28→21:13)
[2017-01-09] MEDS: ATENOLOL 25 MG TAB PO SCH (08:28)
[2017-01-09] MEDS: ANALGESIC BALM CRM 120 GM TOP SCH ×3 (08:29→21:00)
[2017-01-09] MEDS: oxyCODONE 10 MG CR TAB PO SCH ×2 (09:00→21:14)
--- NOTE | 2017-01-09 11:54 | IPNPDOC ---
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 Patient is on weightbearing as tolerated, however, is to use thoracolumbosacral orthosis (TLSO) brace whenever out of bed. Currently, pain in posterior right thigh around punctures and ecchymosis. Patient with crampy thigh pain improved , but still feels tired. No other complaints. ALLERGIES: See Below MEDICATIONS: Reviewed, see below. OBJECTIVE: VITAL SIGNS: Please see below. PHYSICAL EXAMINATION: GENERAL: Obese, elderly, white female, who is alert and well oriented. She is in very mild musculoskeletal distress wearing a TLSO and sitting up on the edge of the bed with good balance. HEENT: Normal cephalic/atraumatic. CARDIOVASCULAR: Regular rate and rhythm with normal S1 and S2. 2/4 bilateral radial pulses. Palmar lines with some redness in them again. LUNGS: All howe clear to auscultation. ABDOMEN: Obese/benign with normal bowel sounds in all quadrants. NEUROLOGICAL: Alert and oriented 4. Speech is clear coherent and appropriate. Affect is pleasant and cooperative. Memory is intact. Patient with some guarding around hips and low back and shoulders in movements. However strength is 4-5 out of 5 in bilateral upper and lower extremities. SKIN: Right thigh puncture wounds without drainage or fluctuance or focal erythema. Area of the ecchymosis with less purple remaining, and mainly spreading yellow and smaller tender brawny feeling area. The area is warmer to touch vs the rest of the thigh/hip area as well as mild tenderness. LABORATORY DATA: Reviewed. Please see below. MICROBIOLOGY: Please see below. IMAGING: EXAMINATION REQUESTED: Chest, 2 view PA, Lat REASON FOR PATIENT VISIT: PELVIC FX, DATE OF ONSET 12/27/16 REASON FOR EXAM/COMMENT: cough TWO VIEW CHEST: Two views of the chest are performed are compared to a prior study of 2015. There is mild cardiomegaly. Scattered interstitial fibrotic changes are present without evidence of acute infiltrate. There is some tortuosity of the thoracic aorta. The mediastinal silhouette is unremarkable and unchanged. There are degenerative changes of the spine. IMPRESSION: Chronic findings and mild cardiomegaly. No acute infiltrate. Signed by Néstor Morales MD 01/08/2017 07:22 P DD: Néstor Morales MD, MD 01/07/17 [id number] DS: CHAYITO 01/08/17 1922 01/08/17 1922 EXAMINATION REQUESTED: Duplex, Ext,LOWER veins,unilat RIGHT REASON FOR PATIENT VISIT: PELVIC FX, DATE OF ONSET 12/27/16 REASON FOR EXAM/COMMENT: pain Right lower extremity Duplex Doppler venous ultrasound: Real time compression and duplex Doppler interrogation of the right lower extremity deep venous system is performed. The right common femoral, superficial femoral and popliteal veins are fully compressible with transducer pressure and demonstrate normal spontaneous and phasic flow, without evidence of deep venous thrombosis. Impression: No evidence of deep venous thrombosis of the right lower extremity femoral popliteal venous system. There is a complex popliteal cyst measuring 4.5 x 3.1 x 3.9 cm. Signed by Néstor Morales MD 01/08/2017 02:28 P DD: Néstor Morales MD, MD 01/08/17 1426 1428 DS: CHAYITO 01/08/17 1428 01/08/17 1428 EXAMINATION REQUESTED: CT-Hip WITHOUT CONTRAST RIGHT REASON FOR PATIENT VISIT: PELVIC FX, DATE OF ONSET 12/27/16 REASON FOR EXAM/COMMENT: h/o fall, h/o fracture, hematoma. R/O abscess CT of the right hip: Axial images are acquired helical scanning and a reformatted sagittal coronal projections. There is a fracture of the acetabular anterior strut. There is a fracture of the right ischium. No fracture of the femoral head or neck. No dislocation. Signed by Néstor Davis MD 01/08/2017 02:31 P DD: Néstor Davis MD 01/08/17 1427 DT: Kait 01/08/17 1431 DS: LOURDES 01/08/17 1431 01/08/17 1431 EXAMINATION REQUESTED: CT ABD & PELVIS W/O CONTRAST REASON FOR PATIENT VISIT: PELVIC FX, DATE OF ONSET 12/27/16 REASON FOR EXAM/COMMENT: h/o fall, h/o fracture, hematoma. R/O abscess CT of the abdomen and pelvis without IV or bowel contrast: The visualized lung howe demonstrate dependent atelectasis, fibrotic changes and cardiomegaly. The unenhanced hepatic parenchyma is homogeneous. There are calcified granulomas. There are surgical clips in the gallbladder fossa. The pancreas and spleen are unremarkable. The abdominal aorta is unremarkable. There is a 2.7 cm left adrenal nodule. Consider follow-up MRI. The right adrenal is unremarkable. There is a horseshoe kidney. There is no hydronephrosis. No renal calculi. In the absence of IV contrast study is insensitive for renal masses. The bowel and mesentery are unremarkable. There is no ascites. There are no focal intra-abdominal fluid collections to suggest abscess. Pelvis: The appendix is not identified. There is no pericecal phlegmon. There is no pelvic ascites or adenopathy. There is a hysterectomy. Vaginal cuff and adnexa are unremarkable. The bladder is unremarkable. There are occasional diverticula in the descending colon and sigmoid colon without diverticulitis. There is a fracture of the anterior strut of the right acetabulum and a fracture of the right ischium. No fracture of the right femoral head or neck. There is a hyperdense 10.4 cm mass posteriorly in the right gluteus mi compatible with hematoma. I suspect there is a unicortical fracture of the sacrum inferomedially on the right near the inferior aspect of the right sacroiliac joint.. Impression: There is a hyperdense mass posteromedially in the right gluteus mi muscle measuring 10.4 cm transversely, compatible with a gluteus hematoma. There is a fracture of the anterior strut of the right acetabulum and a fracture right ischium. I suspect there is a unicortical fracture of the sacrum inferomedially on the right. There is a cholecystectomy. There is a hysterectomy. There is no ascites or adenopathy. The appendix is not identified, however there is no pericecal phlegmon. Signed by Néstor Davis MD 01/08/2017 02:44 P DD: Néstor Davis MD 01/08/17 1433 DT: Kait 01/08/17 1444 DS: LOURDES 01/08/17 1444 01/08/17 1444 DVT prophylaxis ordered?: Off Coumadin with Vit. K dosed and today's INR 1.70. Only using FIONA hose.. ASSESSMENT AND PLAN: 1. Rehabilitation multiple trauma including L3 compression fracture, L1-4 transverse process fractures, right superior and inferior rami fractures of the pelvis, right pelvic hematoma secondary to fracture and right buttocks puncture wounds: Patient was unable to do full therapies on Thursday due to severe anemia for which she has been transfused. Patient has since been able to participate in 3 hours of therapy per day of physical and occupational therapy. Patient showing improved balance and motor control. Increased Baclofen to help with the spasms. Right ischial and acetabular strut fractures found. Anticipated date of discharge now is 01/12/17 will be adjusted at Team Rounds tomorrow as the anemia and right thigh spasms are slowing down her progress. 2. Anemia: Patient received two units additional units of packed red blood cells on and H&H is 10.1 and 31.4 today 01/09/17. We will continue to monitor this. BP and Heart Rate are stable. 3. Hypoalbuminemia: Patient has been stressed by patient multiple fractures and other injuries and albumin is better slightly at 2.5 today on 01/09/17, but with 01/07/17 Prealbumin low at 13.9, so we are probably not catching up. We will continue to monitor this and try and work on nutrition. 4. elevated BUN: BUN and Creatinine remain normal after 2 more units of PRBC's. We will continue to monitor this along with need for nutritional support. I will recheck CMP tomorrow. 5. Total bilirubin: This is more elevated at 2.0. AST now less elevated at 63 down from 74, and Alk. Phos. is mildly elevated at 121. Repeat CMP tomorrow. REHAB. TEAM ROUNDS: Patient is overall making very good progress in ADLs and mobility with the exception of being able to get her legs into bed due to complaints of pain. Otherwise she is reaching her discharge goals at this time we will plan for discharge on Thursday to home with family and home care services. TIME SPENT: Chart Review, examination and documentation require greater than 25 minutes. Patient: Judy Cortez : 1945 Age/Sex: 71/F Unit#: [id number] Room/Bed: M4148/01 User: Beata Stafford OT OT Date: 01/09/17 08:06 Type: OT Progress Time In * 06:55 Time Out * 08:05 OT Treatment Time-Minutes * 70 mins Type of Therapy Provided * Individual Precautions * Fall * Back * Other Other Precautions * TLSO Unit * Acute Inpatient Rehab Pain Start of Session * 8 Pain End of Session * 3 Pain Comment * Pt c/o significant muscle spasms/pain throughout R hip upon OT arrival. Pt states she just had pain medication, but it has not begun working yet. Pt reports pain subsides with time. Subjective * Pt sitting up in w/c upon OT arrival, c/o significant pain. Pt agreeable to begin therapy. Pt encouragement provided. Cognition * Within Normal Limits Sit to Stand * Modified Independent Stand to Sit * Modified Independent Functional Transfer Notes: * Pt completes functional sit<>stand transfers with mod I. Pt ambulates using RW to bathroom with slow, steady steps due to pain. Dressing-Upper Body * Modified Independent Dressing-Lower Body * Modified Independent Grooming * Independent Meal Preparation/Home Management * Modified Independent ADL Training Note * Pt ambulated to bathroom and completed grooming independently at w/c level. Pt able to doff TLSO and tshirt, as well as don clean shirt independently as she gathered clothing. Pt able to don TLSO with only VCs for straps/sequence. Pt then completed LB dressing mod I using AE. Pt self propelled w/c laundry room and ambulated using RW to completed laundry, mod I. Pt utilized food aide to maintain back precautions. A. Eating (include only those with PO intake): * 06.Independent Eating Comments: * See ADL note. B. Oral Hygiene (includes gums in edentulous pts): * 06.Independent Oral Hygiene Comments: * See ADL note. F. Upper Body Dressing (includes bra, not hospital gown): * 06.Independent Upper Body Dressing Comments: * See ADL note. G. Lower Body Dressing (includes briefs and knee braces): * 06.Independent Lower Body Dressing Comments: * See ADL note. H. Putting on/taking off footwear (includes TEDS and AFO): * 06.Independent Putting on/taking off footwear Comments: * See ADL note. Sit-Static * G Sit-Dynamic * G Stand-Static * G Stand-Dynamic * G Balance Training Note * Mod I using RW OT Intervention Note * See ADL note above. Following laundry, pt remained seated in w/c with all needs met, call light in reach, and calling for breakfast. Discharge Recommendations * Home w/services Safe for discharge at this time * No Patient: Judy Cortez : 1945 Age/Sex: 71/F Unit#: [id number] Room/Bed: M4148/01 User: Alyssa Murray PT [facility] PT Date: 01/08/17 14:53 Type: PT Progress Note Time In * 14:15 Time Out * 14:50 PT Treatment Time-Minutes * 35 mins Type of Therapy Provided * Individual Precautions * Fall * Back * Other Other Precautions * TLSO donned for all OOB activity Per MD able to don EOB Unit * Acute Inpatient Rehab Pain Start of Session * 3 Pain End of Session * 4 Pain Comment * Pt continues to c/o "feels like a hot poker" (rt) buttocks/hip region with all functional transfers. Ice applied at end of session Cognition * Within Normal Limits Cognition Comments * A&Ox3 Supine to Sit * Not Tested Sit to Supine * Moderate Assist Rolling * Not Tested Bed Mobility Notes * sit to supine with mod assist for bilat LE's. 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 Step to gait pattern. Amb 56'x1 and 25'x1. Wheelchair Distance * 0 feet Wheelchair Mobility Level of Assist * Not Tested Wheelchair Mobility Comment * using UE's only to propel w/c today. Number of Stairs Completed * 4 Stairs Railing * Yes Railing Side * Right & Left Level of Assist for Stairs * Minimum Assist Able to Maintain Weight Bearing Status on Stairs * Yes Stair Training Note * asc/desc 4" stairs with min assist of 1. forward for down. Able to recall sequence for minimization of right WB pressure. A. Roll Left and Right: * 88.Not Attempted B. Sit to Lying: * 03.Partial/Mod Assist Sit to Lying Comments: * assist for LE's only C. Lying to Sitting on Side of Bed: * 88.Not Attempted D. Sit to Stand: * 05.Setup/clean up Asst E. Chair/Ndp-mf-Acbav Transfer: * 05.Setup/clean up Asst F. Toilet Transfer: * 05.Setup/clean up Asst Toilet Transfer Comments: * able to pull shorts down and up indep with walker available for balance support G. Car Transfer: * 88.Not Attempted Car Transfer Comments: * pt notes being worried about being able to get into and out of the car. Will need to practice prior to d/c with personal vehicle. H. Does the patient walk?: * 2. Yes I. Walk 10 Feet: * 05.Setup/clean up Asst Walk 10 Feet Comments: * See gait note J. Walk 50' with Two Turns: * 05.Setup/clean up Asst K. Walk 150 Feet: * 88.Not Attempted L. Walking 10' on uneven surfaces: * 88.Not Attempted M. 1 Step (curb): * 88.Not Attempted N. 4 Steps (with or without railing): * 03.Partial/Mod Assist 4 Steps (with or without railing) Comments: * 4" rise steps with proper sequence and min assist 1. bilat rails O. 12 Steps (with or without railing): * 88.Not Attempted 12 Steps (with or without railing) Comments: * pt states she is not anticipating going up stairs right aware upon return home depending on difficulty with stairs. She states she is able to set up a 1st floor living situation as needed. P. Picking up Object from the Floor (from a standing): * 88.Not Attempted Q. Does the patient use a w/c (other than just transport): * 0. No R. Wheel 50' with 2 Turns(seated in w/c): * 03.Partial/Mod Assist RR. What type of w/c?: * 1. Manual S. Wheel 150' (seated in w/c): * 88.Not Attempted SS. What type of w/c?: * 1. Manual Lower Extremity Exercised * Bilateral Other Sitting Exercises * dressing lower body with food aide modified indep Number of Reps Sitting * 10-15 Reps Standing Exercises * Hip Abductions Other Standing Exercises * sit to stand x 5 Number of Reps Standing * 10-15 Reps PT Interventions * Gait Training * Therapeutic Excercise * Functional Training * Bed Mobility * Balance Activities * Safety/Precautions * HEP * Pt./Family Education * D/C Needs * Neuro Re-Education PT Progress Note * Pt able to asc/desc stairs slowly but with only min assist 1 this PM. 4" rise only, will need to attempt 6" rise in AM. Amb distance slightly dec due to fatigue. Still req heavy assist for LE's with sit to supine. PT Goal Expiration Date * Feb 01, 2017 PT Goal Note * increase ambulation and functional mobility Discharge Recommendations * Home w/services Safe for discharge at this time * No Allergies Coded Allergies: Clarithromycin (Verified Allergy, Unknown, 06/10/12) Codeine (Verified Allergy, Unknown, 06/10/12) Fluorescein (Unverified Allergy, Unknown, ANAPHYLACTIC SHOCK, 06/11/15) Morphine (Verified Allergy, Unknown, 06/10/12) Vital Signs Vital Signs Date Time Temp Pulse Resp B/P (MAP) Pulse Ox O2 Delivery O2 Flow Rate FiO2 01/09/17 08:28 100 137/66 01/09/17 07:27 18 01/09/17 06:30 98.8 96 Room Air Laboratory Data CBC/BMP Laboratory Tests 01/09/17 06:37 Red Blood Count 3.31 L, Mean Corpuscular Volume 94.0, Mean Corpuscular Hemoglobin 30.5, Mean Corpuscular Hemoglobin Concent 32.5, Red Cell Distribution Width 15.1 H, Calcium Level 8.3 L, Aspartate Amino Transf (AST/SGOT ) 63 H, Alanine Aminotransferase (ALT/SGPT) 30, Alkaline Phosphatase 121 H, Total Bilirubin 2.0 H, Total Protein 6.9, Albumin 2.5 L Labs 24H Laboratory Tests 2 01/08/17 12:43: Urine Appearance CLEAR, Urine Color YELLOW, Urine pH 5.0, Urine Specific [place] 1.005, Urine Protein NEGATIVE, Urine Glucose (UA) NEGATIVE, Urine Ketones NEGATIVE, Urine Urobilinogen 0.2, Urine Bilirubin NEGATIVE, Urine Leukocyte Esterase NEGATIVE, Urine Blood NEGATIVE, Urine Nitrite NEGATIVE, Urine WBC (Auto) 1, Urine RBC (Auto) 2, Urine Hyaline Casts (Auto) 1, Urine Bacteria (Auto) 1+H, Urine Squamous Epithelial Cells 1, Urine Sperm (Auto) 01/09/17 06:37: Nucleated Red Blood Cells % (auto) 0.0, Prothrombin Time 20.6H, Prothromb Time International Ratio 1.71, Anion Gap 8, Glomerular Filtration Rate > 60.0, Blood Urea Nitrogen 14, Creatinine 0.74, Sodium Level 135L, Potassium Level 3.9, Chloride Level 98, Carbon Dioxide Level 29, Calcium Level 8.3L, Aspartate Amino Transf (AST/SGOT) 63H, Alanine Aminotransferase (ALT/SGPT) 30, Alkaline Phosphatase 121H, Total Bilirubin 2.0H, Total Protein 6.9, Albumin 2.5L, Albumin /Globulin Ratio 0.57L Microbiology Microbiology 01/08/17 Urine Culture - Final, Complete Current Medications Current Medications Current Medications Acetaminophen (Tylenol Tab) 650 mg Q6HP PRN PO PAIN OR FEVER Last administered on 01/07/17 03:50; Start 01/02/17 at 12:15; Stop 02/01/17 at 12:14 Albuterol Sulfate (Proventil Neb) 2.5 mg Q4HP PRN NEB SOB/WHEEZING Last administered on 01/08/17 21:33; Start 01/07/17 at 11:45; Stop 02/06/17 at 11:44 Ascorbic Acid (Vitamin C) 500 mg DAILY PO Last administered on 01/09/17 08:27 ; Start 01/03/17 at 09:00; Stop 02/02/17 at 08:59 Aspirin (Ecotrin) 81 mg DAILY PO Last administered on 01/09/17 08:27; Start 01/03/17 at 09:00; Stop 02/02/17 at 08:59 Atenolol (Tenormin) 25 mg DAILY PO Last administered on 01/09/17 08:28; Start 01/03/17 at 09:00; Stop 02/02/17 at 08:59 Baclofen (Lioresal) 5 mg BID PO Last administered on 01/07/17 07:58; Start at 21:00; Stop 01/07/17 at 09:44; Status DC Baclofen (Lioresal) 5 mg Q6H PO Last administered on 01/09/17 11:14; Start at 12:00; Stop 02/06/17 at 11:59 Bisacodyl (Dulcolax Suppository) 10 mg DAILYPRN PRN NC CONSTIPATION; Start at 12:15; Stop 02/01/17 at 12:14 Calcium/Vitamin D (Oscal D) 1,000 mg BID PO Last administered on 01/09/17 08: 27; Start 01/02/17 at 21:00; Stop 02/01/17 at 20:59 Docusate Sodium (Colace) 100 mg BID PO Last administered on 01/09/17 08:27; Start 01/02/17 at 21:00; Stop 02/01/17 at 20:59 Furosemide (Lasix) 40 mg DAILY PO Last administered on 01/07/17 07:59; Start 01/03/17 at 09:00; Stop 01/07/17 at 11:49; Status DC Furosemide (Lasix) 80 mg DAILY PO Last administered on 01/09/17 08:27; Start 01/08/17 at 09:00; Stop 02/07/17 at 08:59 Gabapentin (Neurontin) 200 mg Q8H PO Last administered on 01/09/17 05:46; Start 01/02/17 at 14:00; Stop 02/01/17 at 13:59 Home Med (Med Rec Complete!) ASDIRECTED XX ; Start 01/02/17 at 14:00; Stop at 14:00; Status DC Magnesium Hydroxide (Milk Of Magnesia) 30 ml DAILYPRN PRN PO CONSTIPATION Last administered on 01/08/17 05:57; Start 01/02/17 at 12:15; Stop 02/01/17 at 12: 14 Menthol/Methyl Salicylate (Bengay Cream) right posterior thigh TID TOP Last administered on 01/08/17 20:31; Start 01/06/17 at 16:00; Stop 01/16/17 at 23: 55 Naproxen (Naprosyn) 500 mg BIDP PRN PO PAIN; Start 01/02/17 at 12:15; Stop at 12:14 Omeprazole (PriLOSEC) 20 mg DAILY PO Last administered on 01/09/17 08:27; Start 01/03/17 at 09:00; Stop 02/02/17 at 08:59 Oxycodone HCl (Roxicodone, Oxyir) 5 mg Q4HP PRN PO PAIN SCALE 5-7 Last administered on 01/08/17 08:29; Start 01/02/17 at 12:15; Stop 01/14/17 at 23: 55 Oxycodone HCl (Roxicodone, Oxyir) 10 mg Q4HP PRN PO SEVERE PAIN (PS 8-10) Last administered on 01/09/17 06:57; Start 01/02/17 at 12:15; Stop 01/14/17 at 23: 55 Potassium Chloride (Micro-K Extencaps) 10 meq BID PO Last administered on 08:27; Start 01/07/17 at 21:00; Stop 02/06/17 at 20:59 Potassium Chloride (Micro-K Extencaps) 10 meq DAILY PO Last administered on 07:59; Start 01/03/17 at 09:00; Stop 01/07/17 at 11:51; Status DC Senna (Senokot) 2 tab QHS PO Last administered on 01/08/17 20:31; Start 01/02 at 21:00; Stop 02/01/17 at 20:59 Tramadol HCl (Ultram Er) 100 mg BID PO Last administered on 01/09/17 08:28; Start 01/05/17 at 21:00; Stop 01/12/17 at 20:59 Warfarin Sodium (Coumadin) 2.5 mg 1T@17 PO ; Start 01/02/17 at 17:00; Stop at 17:00; Status DC Warfarin Sodium (Coumadin) 2.5 mg SuTuThSa@1700 PO Last administered on 18:26; Start 01/03/17 at 17:00; Stop 01/08/17 at 12:19; Status DC Warfarin Sodium (Coumadin) 5 mg MoWeFr@1700 PO Last administered on 11/1/17at 18:02; Start 01/02/17 at 17:00; Stop 01/08/17 at 12:19; Status DC JUAN MULLINS MD Jan 09, 2017 11:54
--- NOTE | 2017-01-09 11:59 | IPNPDOC ---
Date Seen The patient was seen on 01/09/17. Progress Note HPI: 71year oldF who presented to 12/27/16 following a fall from a tree stand (Pt states the tree stand broke) at 10 ft, denies LOC. Pt was treated for pelvic fracture, non displaced L3 vertebral body fracture extending to rt pedicle. displaced Rt L1-4 fracture. Orthopedics at recommended no surgical intervention re pelvic fracture. Neurosurgery recommended no surgical intervention re vertebral body fracture. Pt transferred to the care of JOSEPHINE Paez, 01/02/17. Pt received 1 u PRBC 01/03/17, 2 units PRBC 01/06/17, 2 u PRBC 01/08/17. Pt states pain in the rt hip and buttock area is slightly less today. No new areas of bruising. Denies any fevers, chills, weakness, Headache, Chest Pain, Shortness of breath , cough, palpitations, abdominal pain, N/V/D or changes in bowel or bladder habits. PAST MEDICAL HISTORY: 1. Hepatitis B. 2. Gastroesophageal reflux disease. 3. Anemia. 4. Hypertension. 5. Transient ischemic attack (TIA). 6. Atrial fibrillation. On coumadin. 7. TRIXIE. CPAP. PAST SURGICAL HISTORY: 1. Tonsillectomy. 2. Tubal ligation. 3. Hysterectomy. 4. Cholecystectomy PE: GEN: 71yoF, appears stated age. No acute distress. Alert and oriented x 3. Pleasant, interactive. HEENT: Normocephalic, atraumatic. No facial asymmetry. Moist mucous membranes. Dentition fair. Pharynx pink and moist. Neck supple, trachea midline. CHEST: irreg irreg rate and rhythm, +S1, +S2. JVD not visible sitting. LUNGS: Clear to auscultation bilaterally. No wheezes, rales, or rhonchi. Breathing appears symmetric and easy. Patient is speaking in full sentences. No accessory muscle use. ABD: Round, soft, non-tender, non-distended. +Bowel sounds throughout. No rebound or guarding. No costovertebral angle tenderness. EXT:trace lower extremity edema appreciated. Ecchymosis RLE, no change. Varicose veins noted. LLE with pulses 2+, RLE and foot is pink and warm. SKIN: [place], dry, warm. No rashes. Hematoma noted around Rt buttock area with ecchymosis, healing puncture wounds noted. Ecchymosis extends to the RT thigh area as well. Less tender to palpation today and feels less tense. No drainage, no erythema. NEURO: Alert and oriented x 3. Cranial nerves III-XII are intact. No focal deficits appreciated. A&P: 71year oldF who presented to 12/27/16 following a fall from a tree stand (Pt states the tree stand broke) at 10 ft, denies LOC. Pt was treated for pelvic fracture, non displaced L3 vertebral body fracture extending to rt pedicle. displaced Rt L1-4 fracture. Orthopedics at recommended no surgical intervention re pelvic fracture. Neurosurgery recommended no surgical intervention re vertebral body fracture. 1. Multitrauma/pelvic fracture/vertebral fracture. F/U with Orthopedics and Neurosurgery as per . Mgmt as per ARU/Dr English. Pain control as per Dr English/ARU Bowel care as per ARU/Dr English. DVT prophylaxis. 2. Chronic AFib. atenolol rate control with hold parameters. Coumadin on hold. S/P Vit K 5 mg po x 1 01/08. PT/INR ordered daily. INR 1.71. Discussed with Dr Parrish, plan is to continue to hold Coumadin temporarily. Monitor. 3. TRIXIE. CPAP with home settings. 4. HTN. Lasix 80 mg po daily/KCL 10 meq BID. Daily wt. I/O. Lasix 20 mg IV between units PRBC today. 5. GERD. Continue PPI. 6. H/O TIA. Continue ASA 81mg daily. 7. Anemia. H/O pelvic hematoma/fracture. Pt denies any bleeding, change in bowel habits. Hgb 10.1. S/P 1 u PRBC 01/03/17. 2 u PRBC 01/06/17. 2 u PRBC 01/08/17. Fe studies, B12/folate. Stool OB pending. Monitor Hgb. 8. Cough. Resolved. Lasix as above. CXR. 01/07/17 Chronic findings and mild cardiomegaly. No acute infiltrate. Pt states she uses albuterol at home for h/o chronic bronchitis. Cont albuterol Q4 as needed. Encourage I/S. 9. Gluteal hematoma. Cont with plan above. Monitor for any changes. RLE and Rt foot with intact pulses and skin is pink and warm. Pt is moving LEs and is participating with therapy today. VS, I&O, 24H, Fishbone Vital Signs/I&O Vital Signs Date Time Temp Pulse Resp B/P (MAP) Pulse Ox O2 Delivery O2 Flow Rate FiO2 01/09/17 08:28 100 137/66 01/09/17 07:27 18 01/09/17 06:30 98.8 96 Room Air I&O- Last 24 Hours up to 6 AM 01/10/17 06:00 Output Total 800 ml Balance -800 ml Laboratory Data 24H LABS Laboratory Tests 2 01/08/17 12:43: Urine Appearance CLEAR, Urine Color YELLOW, Urine pH 5.0, Urine Specific [place] 1.005, Urine Protein NEGATIVE, Urine Glucose (UA) NEGATIVE, Urine Ketones NEGATIVE, Urine Urobilinogen 0.2, Urine Bilirubin NEGATIVE, Urine Leukocyte Esterase NEGATIVE, Urine Blood NEGATIVE, Urine Nitrite NEGATIVE, Urine WBC (Auto) 1, Urine RBC (Auto) 2, Urine Hyaline Casts (Auto) 1, Urine Bacteria (Auto) 1+H, Urine Squamous Epithelial Cells 1, Urine Sperm (Auto) 01/09/17 06:37: Nucleated Red Blood Cells % (auto) 0.0, Prothrombin Time 20.6H, Prothromb Time International Ratio 1.71, Anion Gap 8, Glomerular Filtration Rate > 60.0, Blood Urea Nitrogen 14, Creatinine 0.74, Sodium Level 135L, Potassium Level 3.9, Chloride Level 98, Carbon Dioxide Level 29, Calcium Level 8.3L, Aspartate Amino Transf (AST/SGOT) 63H, Alanine Aminotransferase (ALT/SGPT) 30, Alkaline Phosphatase 121H, Total Bilirubin 2.0H, Total Protein 6.9, Albumin 2.5L, Albumin /Globulin Ratio 0.57L CBC/BMP Laboratory Tests 01/09/17 06:37 Red Blood Count 3.31 L, Mean Corpuscular Volume 94.0, Mean Corpuscular Hemoglobin 30.5, Mean Corpuscular Hemoglobin Concent 32.5, Red Cell Distribution Width 15.1 H, Calcium Level 8.3 L, Aspartate Amino Transf (AST/SGOT ) 63 H, Alanine Aminotransferase (ALT/SGPT) 30, Alkaline Phosphatase 121 H, Total Bilirubin 2.0 H, Total Protein 6.9, Albumin 2.5 L Microbiology Microbiology 01/08/17 Urine Culture - Final, Complete Ellie Jacobsen Jan 09, 2017 11:59
[2017-01-09 14:00] VITALS: BP 139/71
[2017-01-09] MEDS: ALBUTEROL SULFATE 2.5 MG/0.5 ML INH NEB SOLN NEB PRN (16:30)
[2017-01-09] MEDS: ACETAMINOPHEN TAB 650MG DOSE (2X325MG) PO PRN (17:11)
[2017-01-09 20:00] VITALS: BP 135/70
[2017-01-09] MEDS: SENNA 8.6 MG TAB (SENOKOT) PO SCH (21:17)
[2017-01-10] MEDS: BACLOFEN 5MG PER 1/2 TABLET PO SCH ×4 (06:40→23:45)
[2017-01-10] MEDS: GABAPENTIN 100 MG CAP PO SCH ×3 (06:41→20:55)
[2017-01-10 06:51] VITALS: BP 168/90
[2017-01-10 06:52] LABS: MEAN CORPUSCULAR HEMOGLOBIN 30.8 pg (27.0-33.0); MEAN CORPUSCULAR HGB CONC 32.6 g/dl (32.0-36.5); MEAN CORPUSCULAR VOLUME 94.6 fl (80.0-96.0); PLATELET COUNT, AUTOMATED 375 10^3/uL (150-450); RED CELL DISTRIBUTION WIDTH 14.8 % (11.5-14.5); WHITE BLOOD COUNT 8.2 10^3/uL (4.0-10.0)
[2017-01-10 07:02] LABS: INR 1.3
[2017-01-10 07:45] LABS: ALBUMIN 2.3 GM/DL (3.2-5.2); ALBUMIN/GLOBULIN RATIO 0.52 (1.00-1.93); ALKALINE PHOSPHATASE 128 U/L (45-117); ALT/SGPT 28 U/L (12-78); ANION GAP 7 MEQ/L (8-16); AST/SGOT 43 U/L (7-37); BILIRUBIN,TOTAL 1.6 MG/DL (0.2-1.0); BLOOD UREA NITROGEN 13 MG/DL (7-18); CALCIUM LEVEL 8.5 MG/DL (8.8-10.2); CARBON DIOXIDE LEVEL 31 MEQ/L (21-32); CHLORIDE LEVEL 99 MEQ/L (98-107); CREATININE FOR GFR 0.66 MG/DL (0.55-1.02); GLOMERULAR FILTRATION RATE > 60.0 (>39); GLUCOSE, FASTING 98 MG/DL (83-110); POTASSIUM SERUM 3.9 MEQ/L (3.5-5.1); SODIUM LEVEL 137 MEQ/L (136-145); TOTAL PROTEIN 6.7 GM/DL (6.4-8.2)
[2017-01-10] MEDS: ANALGESIC BALM CRM 120 GM TOP SCH ×3 (09:00→20:56)
[2017-01-10] MEDS: FUROSEMIDE 40 MG TAB PO SCH (09:41)
[2017-01-10] MEDS: CALCIUM/VITAMIN D 500 MG TAB PO SCH ×2 (09:41→20:55)
[2017-01-10] MEDS: traMADol ER 100MG TABLET (ULTRAM ER) PO SCH ×2 (09:41→20:55)
[2017-01-10] MEDS: ATENOLOL 25 MG TAB PO SCH (09:41)
[2017-01-10] MEDS: OMEPRAZOLE 20 MG CAP PO SCH (09:41)
[2017-01-10] MEDS: DOCUSATE SODIUM 100 MG CAP PO SCH ×2 (09:42→20:54)
[2017-01-10] MEDS: oxyCODONE 10 MG CR TAB PO SCH ×2 (09:42→20:55)
[2017-01-10] MEDS: ASPIRIN 81 MG ENTERIC TAB PO SCH (09:43)
[2017-01-10] MEDS: ASCORBIC ACID 500 MG TAB PO SCH (09:43)
[2017-01-10] MEDS: POTASSIUM CHLORIDE 10 MEQ SR TABLET PO SCH ×2 (09:43→20:56)
[2017-01-10] MEDS: oxyCODONE 5MG TAB PO PRN (12:34)
[2017-01-10] MEDS ORDERED: PREPARATION H OINTMENT (HEMORRHOID) PR PRN (13:30)
[2017-01-10 14:00] VITALS: BP 142/74
[2017-01-10 20:00] VITALS: BP 136/90
[2017-01-10] MEDS: SENNA 8.6 MG TAB (SENOKOT) PO SCH (20:55)
[2017-01-11] MEDS: BACLOFEN 5MG PER 1/2 TABLET PO SCH ×3 (05:33→17:19)
[2017-01-11] MEDS: GABAPENTIN 100 MG CAP PO SCH ×3 (05:34→20:46)
[2017-01-11 06:00] VITALS: BP 142/78
[2017-01-11 06:26] LABS: MEAN CORPUSCULAR HEMOGLOBIN 30.8 pg (27.0-33.0); MEAN CORPUSCULAR HGB CONC 32.5 g/dl (32.0-36.5); MEAN CORPUSCULAR VOLUME 94.6 fl (80.0-96.0); PLATELET COUNT, AUTOMATED 386 10^3/uL (150-450); RED CELL DISTRIBUTION WIDTH 14.5 % (11.5-14.5); WHITE BLOOD COUNT 9.4 10^3/uL (4.0-10.0)
[2017-01-11 06:34] LABS: INR 1.28
[2017-01-11 07:06] LABS: ALBUMIN 2.4 GM/DL (3.2-5.2); ALBUMIN/GLOBULIN RATIO 0.65 (1.00-1.93); ALKALINE PHOSPHATASE 138 U/L (45-117); ALT/SGPT 27 U/L (12-78); ANION GAP 7 MEQ/L (8-16); AST/SGOT 33 U/L (7-37); BILIRUBIN,TOTAL 1.3 MG/DL (0.2-1.0); BLOOD UREA NITROGEN 13 MG/DL (7-18); CALCIUM LEVEL 8.2 MG/DL (8.8-10.2); CARBON DIOXIDE LEVEL 31 MEQ/L (21-32); CHLORIDE LEVEL 99 MEQ/L (98-107); CREATININE FOR GFR 0.64 MG/DL (0.55-1.02); GLOMERULAR FILTRATION RATE > 60.0 (>39); GLUCOSE, FASTING 98 MG/DL (83-110); POTASSIUM SERUM 4.2 MEQ/L (3.5-5.1); SODIUM LEVEL 137 MEQ/L (136-145); TOTAL PROTEIN 6.1 GM/DL (6.4-8.2)
[2017-01-11] MEDS: FUROSEMIDE 40 MG TAB PO SCH (08:38)
[2017-01-11] MEDS: ASPIRIN 81 MG ENTERIC TAB PO SCH (08:39)
[2017-01-11] MEDS: DOCUSATE SODIUM 100 MG CAP PO SCH ×2 (08:39→20:46)
[2017-01-11] MEDS: ASCORBIC ACID 500 MG TAB PO SCH (08:39)
[2017-01-11] MEDS: OMEPRAZOLE 20 MG CAP PO SCH (08:39)
[2017-01-11] MEDS: POTASSIUM CHLORIDE 10 MEQ SR TABLET PO SCH ×2 (08:39→20:46)
[2017-01-11] MEDS: ATENOLOL 25 MG TAB PO SCH (08:40)
[2017-01-11] MEDS: oxyCODONE 10 MG CR TAB PO SCH ×2 (08:41→20:47)
[2017-01-11] MEDS: traMADol ER 100MG TABLET (ULTRAM ER) PO SCH ×2 (08:41→20:46)
[2017-01-11] MEDS: ANALGESIC BALM CRM 120 GM TOP SCH ×3 (08:42→20:48)
[2017-01-11] MEDS: CALCIUM/VITAMIN D 500 MG TAB PO SCH ×2 (08:42→20:46)
[2017-01-11] MEDS: ACETAMINOPHEN TAB 650MG DOSE (2X325MG) PO PRN (12:38)
[2017-01-11 14:00] VITALS: BP 135/72
[2017-01-11 20:00] VITALS: BP 122/79
[2017-01-11] MEDS: SENNA 8.6 MG TAB (SENOKOT) PO SCH (20:47)
[2017-01-11] MEDS: MOM 30ML SUSPENSION UDC PO PRN (20:49)
[2017-01-12] MEDS: BACLOFEN 5MG PER 1/2 TABLET PO SCH ×4 (00:14→18:04)
[2017-01-12] MEDS: ALBUTEROL SULFATE 2.5 MG/0.5 ML INH NEB SOLN NEB PRN ×2 (02:28→16:46)
[2017-01-12] MEDS: GABAPENTIN 100 MG CAP PO SCH ×3 (05:23→21:15)
[2017-01-12 06:00] VITALS: BP 125/66
[2017-01-12 06:58] LABS: INR 1.24
[2017-01-12 07:06] LABS: ALBUMIN 2.3 GM/DL (3.2-5.2); ALBUMIN/GLOBULIN RATIO 0.55 (1.00-1.93); ALKALINE PHOSPHATASE 137 U/L (45-117); ALT/SGPT 25 U/L (12-78); ANION GAP 6 MEQ/L (8-16); AST/SGOT 26 U/L (7-37); BILIRUBIN,TOTAL 1.1 MG/DL (0.2-1.0); BLOOD UREA NITROGEN 13 MG/DL (7-18); CALCIUM LEVEL 8.3 MG/DL (8.8-10.2); CARBON DIOXIDE LEVEL 32 MEQ/L (21-32); CHLORIDE LEVEL 100 MEQ/L (98-107); CREATININE FOR GFR 0.71 MG/DL (0.55-1.02); GLOMERULAR FILTRATION RATE > 60.0 (>39); GLUCOSE, FASTING 99 MG/DL (83-110); POTASSIUM SERUM 3.9 MEQ/L (3.5-5.1); SODIUM LEVEL 138 MEQ/L (136-145); TOTAL PROTEIN 6.5 GM/DL (6.4-8.2)
[2017-01-12] MEDS: ASPIRIN 81 MG ENTERIC TAB PO SCH (09:58)
[2017-01-12] MEDS: ASCORBIC ACID 500 MG TAB PO SCH (09:59)
[2017-01-12] MEDS: POTASSIUM CHLORIDE 10 MEQ SR TABLET PO SCH ×2 (09:59→21:16)
[2017-01-12] MEDS: DOCUSATE SODIUM 100 MG CAP PO SCH ×2 (09:59→21:16)
[2017-01-12] MEDS: CALCIUM/VITAMIN D 500 MG TAB PO SCH ×2 (09:59→21:16)
[2017-01-12] MEDS: ATENOLOL 25 MG TAB PO SCH (09:59)
[2017-01-12] MEDS: FUROSEMIDE 40 MG TAB PO SCH (10:00)
[2017-01-12] MEDS: OMEPRAZOLE 20 MG CAP PO SCH (10:00)
[2017-01-12] MEDS: oxyCODONE 10 MG CR TAB PO SCH ×2 (10:00→21:15)
[2017-01-12] MEDS: traMADol ER 100MG TABLET (ULTRAM ER) PO SCH (10:01)
[2017-01-12] MEDS: ANALGESIC BALM CRM 120 GM TOP SCH ×3 (10:01→21:00)
--- NOTE | 2017-01-12 12:25 | IPNPDOC ---
Date Seen The patient was seen on 01/12/17. Progress Note HPI: 71year oldF who presented to 12/27/16 following a fall from a tree stand (Pt states the tree stand broke) at 10 ft, denies LOC. Pt was treated for pelvic fracture, non displaced L3 vertebral body fracture extending to rt pedicle. displaced Rt L1-4 fracture. Orthopedics at recommended no surgical intervention re pelvic fracture. Neurosurgery recommended no surgical intervention re vertebral body fracture. Pt transferred to the care of JOSEPHINE Paez, 01/02/17. Pt received 1 u PRBC 01/03/17, 2 units PRBC 01/06/17, 2 u PRBC 01/08/17. Pt states pain in the rt hip and buttock area continues to decrease. No new areas of bruising. Denies any fevers, chills, weakness, Headache, Chest Pain, Shortness of breath , cough, palpitations, abdominal pain, N/V/D or changes in bowel or bladder habits. PAST MEDICAL HISTORY: 1. Hepatitis B. 2. Gastroesophageal reflux disease. 3. Anemia. 4. Hypertension. 5. Transient ischemic attack (TIA). 6. Atrial fibrillation. On coumadin. 7. TRIXIE. CPAP. PAST SURGICAL HISTORY: 1. Tonsillectomy. 2. Tubal ligation. 3. Hysterectomy. 4. Cholecystectomy PE: GEN: 71yoF, appears stated age. No acute distress. Alert and oriented x 3. Pleasant, interactive. HEENT: Normocephalic, atraumatic. No facial asymmetry. Moist mucous membranes. Dentition fair. Pharynx pink and moist. Neck supple, trachea midline. CHEST: irreg irreg rate and rhythm, +S1, +S2. JVD not visible sitting. LUNGS: Clear to auscultation bilaterally. No wheezes, rales, or rhonchi. Breathing appears symmetric and easy. Patient is speaking in full sentences. No accessory muscle use. ABD: Round, soft, non-tender, non-distended. +Bowel sounds throughout. No rebound or guarding. No costovertebral angle tenderness. EXT:trace lower extremity edema appreciated. Ecchymosis RLE, decreasing. Varicose veins noted. LLE with pulses 2+, RLE and foot is pink and warm. SKIN: [place], dry, warm. No rashes. Hematoma noted around Rt buttock area with ecchymosis, healing puncture wounds noted. Ecchymosis appears to be resolving, decreased tenderness to palpation, feels less tense. No drainage, no erythema. NEURO: Alert and oriented x 3. Cranial nerves III-XII are intact. No focal deficits appreciated. A&P: 71year oldF who presented to 12/27/16 following a fall from a tree stand (Pt states the tree stand broke) at 10 ft, denies LOC. Pt was treated for pelvic fracture, non displaced L3 vertebral body fracture extending to rt pedicle. displaced Rt L1-4 fracture. Orthopedics at recommended no surgical intervention re pelvic fracture. Neurosurgery recommended no surgical intervention re vertebral body fracture. 1. Multitrauma/pelvic fracture/vertebral fracture. F/U with Orthopedics and Neurosurgery as per . Mgmt as per ARU/Dr English. Pain control as per Dr English/ARU Bowel care as per ARU/Dr English. DVT prophylaxis. 2. Chronic AFib. atenolol rate control with hold parameters. Coumadin on hold. S/P Vit K 5 mg po x 1 01/08. PT/INR ordered daily. INR 1.24. Previously discussed with Dr Parrish, plan is to continue to hold Coumadin temporarily. Reviewed with Dr Salmeron, continue to hold for discharge and F/U with PCP this week to consider restarting Coumadin. 3. TRIXIE. CPAP with home settings. 4. HTN. Lasix 80 mg po daily/KCL 10 meq BID. Daily wt. I/O. Lasix 20 mg IV between units PRBC today. 5. GERD. Continue PPI. 6. H/O TIA. Continue ASA 81mg daily. 7. Anemia. H/O pelvic hematoma/fracture. Pt denies any bleeding, change in bowel habits. Hgb 10.1. S/P 1 u PRBC 01/03/17. 2 u PRBC 01/06/17. 2 u PRBC 01/08/17. Fe studies, B12/folate. Stool OB neg. Monitor Hgb. 8. Cough. Resolved. Lasix as above. CXR. 01/07/17 Chronic findings and mild cardiomegaly. No acute infiltrate. Pt states she uses albuterol at home for h/o chronic bronchitis. Cont albuterol Q4 as needed. Encourage I/S. 9. Gluteal hematoma. Cont with plan above. Monitor for any changes. RLE and Rt foot with intact pulses and skin is pink and warm. Pt is moving LEs and is participating with therapy today. VS, I&O, 24H, Fishbone Vital Signs/I&O Vital Signs Date Time Temp Pulse Resp B/P (MAP) Pulse Ox O2 Delivery O2 Flow Rate FiO2 01/12/17 10:00 18 01/12/17 09:59 97 125/66 01/12/17 09:00 Room Air 01/12/17 06:00 99.0 95 I&O- Last 24 Hours up to 6 AM 01/13/17 06:00 Intake Total 360 ml Balance 360 ml Laboratory Data 24H LABS Laboratory Tests 2 01/12/17 06:15: Prothrombin Time 15.8H, Prothromb Time International Ratio 1.24, Anion Gap 6L, Glomerular Filtration Rate > 60.0, Blood Urea Nitrogen 13, Creatinine 0.71, Sodium Level 138, Potassium Level 3.9, Chloride Level 100, Carbon Dioxide Level 32, Calcium Level 8.3L, Aspartate Amino Transf (AST/SGOT) 26, Alanine Aminotransferase (ALT/SGPT) 25, Alkaline Phosphatase 137H, Total Bilirubin 1.1H , Total Protein 6.5, Albumin 2.3L, Albumin/Globulin Ratio 0.55L CBC/BMP Laboratory Tests 01/12/17 06:15 Calcium Level 8.3 L, Aspartate Amino Transf (AST/SGOT) 26, Alanine Aminotransferase (ALT/SGPT) 25, Alkaline Phosphatase 137 H, Total Bilirubin 1.1 H, Total Protein 6.5, Albumin 2.3 L Microbiology Microbiology 01/09/17 Stool Occult Blood (RACQUEL) - Final, Complete 01/08/17 Urine Culture - Final, Complete Ellie Jacobsen Jan 12, 2017 12:25
[2017-01-12 14:00] VITALS: BP 134/72
[2017-01-12 20:30] VITALS: BP 126/78
[2017-01-12] MEDS: SENNA 8.6 MG TAB (SENOKOT) PO SCH (21:16)
[2017-01-13] MEDS: BACLOFEN 5MG PER 1/2 TABLET PO SCH ×3 (00:15→13:14)
[2017-01-13] MEDS: ALBUTEROL SULFATE 2.5 MG/0.5 ML INH NEB SOLN NEB PRN ×2 (03:37→12:53)
[2017-01-13 06:00] VITALS: BP 125/80
[2017-01-13] MEDS: GABAPENTIN 100 MG CAP PO SCH ×2 (06:17→14:06)
[2017-01-13 07:09] LABS: ALBUMIN 2.2 GM/DL (3.2-5.2); ALBUMIN/GLOBULIN RATIO 0.54 (1.00-1.93); ALKALINE PHOSPHATASE 126 U/L (45-117); ALT/SGPT 24 U/L (12-78); ANION GAP 5 MEQ/L (8-16); AST/SGOT 27 U/L (7-37); BILIRUBIN,TOTAL 0.9 MG/DL (0.2-1.0); BLOOD UREA NITROGEN 11 MG/DL (7-18); CALCIUM LEVEL 8.4 MG/DL (8.8-10.2); CARBON DIOXIDE LEVEL 32 MEQ/L (21-32); CHLORIDE LEVEL 100 MEQ/L (98-107); CREATININE FOR GFR 0.66 MG/DL (0.55-1.02); GLOMERULAR FILTRATION RATE > 60.0 (>39); GLUCOSE, FASTING 101 MG/DL (83-110); POTASSIUM SERUM 3.9 MEQ/L (3.5-5.1); SODIUM LEVEL 137 MEQ/L (136-145); TOTAL PROTEIN 6.3 GM/DL (6.4-8.2)
[2017-01-13 08:17] VITALS: BP 125/80
[2017-01-13] MEDS: POTASSIUM CHLORIDE 10 MEQ SR TABLET PO SCH (08:17)
[2017-01-13] MEDS: DOCUSATE SODIUM 100 MG CAP PO SCH (08:17)
[2017-01-13] MEDS: OMEPRAZOLE 20 MG CAP PO SCH (08:17)
[2017-01-13] MEDS: ASCORBIC ACID 500 MG TAB PO SCH (08:17)
[2017-01-13] MEDS: CALCIUM/VITAMIN D 500 MG TAB PO SCH (08:17)
[2017-01-13] MEDS: ATENOLOL 25 MG TAB PO SCH (08:17)
[2017-01-13] MEDS: FUROSEMIDE 40 MG TAB PO SCH (08:18)
[2017-01-13] MEDS: ASPIRIN 81 MG ENTERIC TAB PO SCH (08:18)
[2017-01-13] MEDS: oxyCODONE 10 MG CR TAB PO SCH (08:18)
[2017-01-13] MEDS: ANALGESIC BALM CRM 120 GM TOP SCH (08:19)
[2017-01-13] MEDS ORDERED: NAPR500T3 PO (09:42)
[2017-01-13] MEDS ORDERED: TRAM50TA2 PO (09:42)
[2017-01-13] MEDS ORDERED: GABA-279 PO (09:42)
[2017-01-13 14:00] VITALS: BP 129/66
[2017-01-13] MEDS: oxyCODONE 5MG TAB PO PRN (15:24)
--- NOTE | 2017-01-14 19:57 | PMRDS ---
DATE OF ADMISSION: 01/02/2017 DATE OF DISCHARGE: 01/13/2017 DISCHARGE DIAGNOSES: Rehabilitation of multiple trauma including right superior a non-distended inferior pubic rami fractures, right acetabular stress fracture, right ischial fracture, C3 compression fracture, L1, L2, l3, L4 tranverse process fractures with pelvic and right side hematomas and puncture wounds in the right posterior thigh from fall on 12/27/2016 when her hunting tree stand supports broke and she landed on them sustaining the puncture wounds and fractures. HISTORY: Patient is a 71-year-old white female who is right-handed and has been fairly active in spite of morbid obesity, high grade L5 to S1 stenosis, osteoporosis, atrial fibrillation, hypertension and status post prior cholecystectomy hernia repair, hysterectomy, orbital fracture repair and total knee replacement. Patient was out preparing her tree stand for the hunting season when one of the supports broke as she was coming back out of a the 10 foot high hunting stand and patient slid and then fell. She was taken to [facility] and transferred to [facility] for further management. Patient with a TLSO brace and started on physical and occupational therapy and on 01/02/2017 was felt to be appropriate for acute intensive rehabilitation and was transferred to [facility]. PROCEDURES PERFORMED ON THE UNIT INCLUDE: Abdominal and pelvic CT. Right lower extremity. Vascular ultrasound of the right lower extremity. Chest x-ray as patient had some fevers and increasing spasms in her right thigh. However no signs of infections, clots or other complications were found. LABORATORY DATA: Showed patient admitted with H and H of 7.6 and 22.8, and received over the course of her admission, five units of packed red blood cells to help correct this and H & H on 01/11/2017 was stable at 9.6 and 29.5 and patient had been discontinued from her Coumadin for the chronic atrial fibrillation management and this will be reviewed by Dr. Bermudez when he sees her in a week. Chemistry showed normal electrolytes and increased BUN on admission with BUN of 29 and albumin markedly reduced at 2.3. Patient during the course of admission had elevated total bilirubin 1.4 on admission that peaked at 2.0 on the 3rd and returned back to normal of 0.9 by discharge. Her alkaline phosphatase was mildly elevated throughout the admission and AST did elevate to 63 and then returned back to normal. HOSPITAL COURSE: The patient started on a program and physical and occupational therapy. Additional diagnosis is obstructive sleep apnea and patient used her bi-level positive airway pressure (BiPAP) throughout the course of admission and did fairly well with it and was able to progress to meeting modified independent levels of activities of daily living and mobility and using the TLSO and front wheel walker during the course of the admission. Please see physical and occupational therapy evaluation and most recent progress note for precise improvements in the course of patient's admission. Patient's main deficit was being able to lifts legs into be, which she accomplished on 01/13/2017. DISCHARGE MEDICATIONS: - Tramadol 50 mg every 4 hours as needed pain that is moderate to severe - Tylenol 650 mg every 6 hours for pain and fever - Ascorbic acid 500 mg daily - aspirin 81 mg daily - atenolol 25 mg daily - calcium citrate 950 mg tablet to half tablet twice a day - Refresh plus eye drops one drop both eyes twice a day as needed dry eyes - vitamin D 2000 international units daily - Lasix 80mg daily - omeprazole 20 mg daily - potassium chloride continuous release 10 mEq twice a day - Senna 8.6 mg tablets two tablets at bedtime - gabapentin 200 mg three times a day - Naproxen 500 mg twice a day At discharge patient had been stopped on the Coumadin due to the slow blood loss that required the multiple transfusions which had stabilized off Coumadin. Also, Doculax, Colace, Lidoderm patch, Milk of Magnesia and oxycodone for pain were stopped. COMPLICATIONS: None except for mild blood loss that had stopped by discharge. DISCHARGE PLAN: Patient to follow up with neurosurgery, orthopedics and eye doctor down at [facility] and to see Dr. Bermudez within a week for primary care, and home care through [facility]. TIME SPENT ON DISCHARGE: Greater than 35 minutes. edited: 01/15/2017 [id number] tkf DEBORAH
== END 2017-01-13 15:50 | disposition home health service (06) | DRG 561 ==
LOC: M PM&R 12:35
PROVIDERS: ADMIT Physical Medicine & Rehabilitation; ATTEND Physical Medicine & Rehabilitation
PROC: 30233N1 Transfusion of Nonautologous Red Blood Cells into Peripheral Vein, Percutaneous Approach (ICD-10-PCS; principal; 2017-01-03)
DX: S32.029D Unspecified fracture of second lumbar vertebra, subsequent encounter for fracture with routine healing (principal); S32.039D Unspecified fracture of third lumbar vertebra, subsequent encounter for fracture with routine healing; S32.049D Unspecified fracture of fourth lumbar vertebra, subsequent encounter for fracture with routine healing; S32.501D Unspecified fracture of right pubis, subsequent encounter for fracture with routine healing; K21.9 Gastro-esophageal reflux disease without esophagitis; D64.9 Anemia, unspecified; I10 Essential (primary) hypertension; I48.2 Chronic atrial fibrillation; Z79.82 Long term (current) use of aspirin; Z79.899 Other long term (current) drug therapy; S31.813D Puncture wound without foreign body of right buttock, subsequent encounter; G47.33 Obstructive sleep apnea (adult) (pediatric); Z88.5 Allergy status to narcotic agent; Z88.8 Allergy status to other drugs, medicaments and biological substances; E66.01 Morbid (severe) obesity due to excess calories; Z79.01 Long term (current) use of anticoagulants; Z86.73 Personal history of transient ischemic attack (TIA), and cerebral infarction without residual deficits; B18.2 Chronic viral hepatitis C; E88.09 Other disorders of plasma-protein metabolism, not elsewhere classified; W14.XXXD Fall from tree, subsequent encounter; Y92.009 Unspecified place in unspecified non-institutional (private) residence as the place of occurrence of the external cause